=== PATIENT | male | born 1955 | race Caucasian/White ===

== ENCOUNTER 2017-05-31 11:55 | Inpatient (IN) ==
[2017-05-31 15:23] LABS: Basophils % 0.8 %; Eosinophils # 0.1 K/mcL (0.0-0.6); Hematocrit 37.1 % (37.5-50.1); Immature Granulocytes % 0.2 % (0-4); Lymphocytes # 1.5 K/mcL (0.6-4.6); Lymphocytes % 30.7 %; Mean Corpuscular HGB Conc 32.3 g/dL (31.6-35.5); Mean Corpuscular Volume 98.9 fL (83.0-100.0); Mean Platelet Volume 9.5 fL (9.4-12.4); Monocytes # 0.2 K/mcL (0.0-1.3); Monocytes % 4.1 %; Neutrophils # 3.1 K/mcL (1.6-8.9); Platelet Count 193 K/mcL (140-400); Red Blood Count 3.75 M/mcL (4.19-5.50); Red Cell Distribution Width 15.7 % (11.5-14.5); Segmented Neutrophils % 63.2 %
[2017-05-31 15:39] LABS: Calcium 9.3 mg/dL (8.6-10.8); Potassium 4.2 mEq/L (3.5-4.5)
[2017-05-31] MEDS ORDERED: Vancomycin 1,500 MG in D5% in Water 250 ML IVPB ONE (15:41)
[2017-05-31] MEDS ORDERED: 0.9 % Sodium Chloride 1,000 ML IVC ONE ×2 (15:50→16:45)
--- NOTE | 2017-05-31 16:40 | Emergency Department Note ---
START Narrative - START START: 61-year-old male presents emergency room with complaint of left hand swelling and irritation. He was seen in outpatient orthopedic physician's office. They had imaging and there is concern for osteomyelitis. Patient has redness and swelling over the proximal aspect of the first joint of the index finger left hand. He also swelling in his left lower extremity. Has a history of congestive heart failure and cardiac disease along with poorly controlled diabetes. Recent and physical exam is resting in the bed in no distress he is alert oriented speaking in full sentences. Answers questions appropriately. Lungs are clear heart is regular. He has had bilateral pitting edema in the extremities but no visible signs of cellulitis in the lower extremities at this time. He does have redness today Mtp joint of the big toe of the left lower cavity as well. Uric acid CBC chemistry troponin BNP chest x-ray EKG as well as CT imaging of the left upper extremity will be completed. Patient will be given first doses of antibiotics including vancomycin and Rocephin here and admission process will be completed for osteomyelitis. Patient is otherwise comfortable resting in bed at this time disposition pending this workup and treatment course. See detailed documentation of the resident physicians physical exam, medical intervention, medical decision-making and disposition. Patient admitted to hospice at this time with antibiotic regimen started. Consult placed to the request. See detailed documentation of this consultation and there is a physician's note. Patient is otherwise stable with osteomyelitis and superficial cellulitis. DVT study was negative.
--- NOTE | 2017-05-31 17:24 | Emergency Department Note ---
Disposition Clinical Impression: Osteomyelitis Qualifiers: Osteomyelitis type: unspecified type Osteomyelitis location: hand Laterality: left Qualified Code(s): M86.9 - Osteomyelitis, unspecified Cellulitis Qualifiers: Site of cellulitis: extremity Site of cellulitis of extremity: upper extremity Laterality: left Qualified Code(s): L03.114 - Cellulitis of left upper limb Disposition: Admitted As Inpatient Condition: Fair Time of Disposition: 17:55 Skin/Abscess/FB HPI Chief complaint: ED Skin/Abscess/Foreign Body Stated complaint: left hand cellulitis Time Seen by Provider: 05/31/17 15:09 Source: patient, family Mode of arrival: wheelchair Limitations: no limitations Nursing Notes Reviewed: Yes Vital Signs Reviewed: Yes HPI Narrative: 61-year-old male diabetic reporters to ED at insistence of orthopedic hand surgeon for developing left-hand cellulitis. Patient tells me left hand has been read and progressively edematous over the port over the course of about one week. Has been seen multiple times and given PO as well as IM antibiotics. Edematous, erythematous region spreading beyond previously drawn borders despite these treatments. Was seen by orthopedic hand specialist today, and an x-ray of the hand and demonstrates features consistent with osteomyelitis per radiologist read. Patient has had chills, but denies any overt fevers, diaphoresis, vision change , syncope, presyncope, palpitations, shortness of air, nausea, vomiting, dysuria. present comments on wound to grade 12 the right foot that is presently being followed by wound care. She also mentions a patient has some acute edema up to the knee of his left lower extremity. No known active cancer, no limb paralysis, no increased sedimentation, no pain in left lower exterminate, no prior DVT. Well's DVT = 3. Home Medications Medication Instructions Recorded Confirmed Atorvastatin Calcium [Lipitor] 80 mg PO HS #0 11/20/15 05/31/17 Divalproex (24 HR) [Depakote ER 500 mg PO DAILY 11/20/15 05/31/17 (24 HR)] Gemfibrozil [Lopid] 600 mg PO BIDWM 11/20/15 05/31/17 Glimepiride [Amaryl] 4 mg PO BID #0 11/20/15 05/31/17 Methocarbamol [Robaxin] 500 mg PO Q6HR PRN 11/20/15 05/31/17 Nitroglycerin [Nitrostat] 0.4 mg SL Q5M PRN #0 11/20/15 05/31/17 Omeprazole [PriLOSEC] 20 mg PO DAILY 11/20/15 05/31/17 SitaGLIPtin [Januvia] 100 mg PO DAILY 11/20/15 05/31/17 hydrALAZINE [HydrALAZINE] 37.5 mg PO TID 11/20/15 05/31/17 Albuterol Sulfate [Ventolin Hfa] 2 puff IH Q4H PRN 05/31/17 05/31/17 Aspirin 325 mg PO DAILY 05/31/17 05/31/17 Clopidogrel [Plavix] 75 mg PO DAILY 05/31/17 05/31/17 Doxycycline Monohydrate [Mondoxyne 100 mg PO BID 05/31/17 05/31/17 Nl] Furosemide [Lasix] 80 mg PO BID 05/31/17 05/31/17 HYDROcodone/Acet 5/325 mg [Trosper 1 tab PO BID PRN 05/31/17 05/31/17 5-325 mg] Insulin NPH Human Isophane 10 unit SQ QPM 05/31/17 05/31/17 [Novolin N] Insulin NPH Human Isophane 20 unit SQ QAM 05/31/17 05/31/17 [Novolin N] Insulin Regular, Human [Novolin R] 6 unit SQ BID 05/31/17 05/31/17 Isosorbide MONOnitrate (24 HR) 60 mg PO DAILY 05/31/17 05/31/17 [Imdur] Morphine Sulfate [Arymo ER] 15 mg PO Q12H PRN 05/31/17 05/31/17 Walsh-3/Dha/Epa/Fish Oil [Fish Oil 1,000 mg PO BID 05/31/17 05/31/17 1,000 mg Softgel] Potassium Chloride [K-Tab ER] 20 meq PO BID 05/31/17 05/31/17 metOLazone [Zaroxolyn] 2.5 mg PO FR 05/31/17 05/31/17 Allergies Allergy/AdvReac Type Severity Reaction Status Date / Time butorphanol [From Stadol] Allergy Unconscious Verified 05/31/17 11:56 fenofibrate [From Tricor] Allergy rhabdomylos Verified 05/31/17 11:56 is All systems ED: reviewed and negative except as stated. Review of Systems: As Per HPI Past Medical History - Past Medical History Attestation: Yes The following information was validated with the patient. Medical history: Reports: CHF, coronary artery disease, CVA, diabetes, hyperlipidemia, hypertension, myocardial infarction, other Surgical history: Reports: angioplasty/stent (Multiple times last time performed May 2015), cataract (Bilateral), cholecystectomy, herniorrhaphy ( Left inguinal), knee replacement (Left), orthopedic, other (Spinal surgery the patient did not tell me but the report from other hospitals as it was for some type of tumor), pacemaker/AICD Psychiatric history: Reports: no psych history - Social History Smoking Status: Former smoker Smokeless Tobacco Status: No Alcohol use: Reports: none Drug use: Reports: none Physical Exam Left hand: edematous erythematous region appreciated on dorsum of hand, then border is seen, but affected area extends beyond marker line. palpation, no fluctuating regions felt within hand. sensation, circulation, motor function intact to left hand. Right foot: great toe initially wrapped with some evidence of dry purulent discharge, small wound evident on tip of great toe without any acute drainage, some necrotic component to this lesion, Refill normal, sensation intact, overall toe is not overly erythematous or edematous. Leg: bilateral pitting edema, edema significantly worse on left compared right, left leg is generally erythematous, pulses intact bilaterally, no abrasions, no left leg lymphangitic streaking, no fluctuant component, not calorous. - General Limitations: no limitations General appearance: alert, in no apparent distress - Head Head exam: normocephalic - Eye Eye exam: Present: PERRL, EOMI. Absent: scleral icterus, conjunctival injection - ENT ENT exam: mucous membranes moist - Neck Neck exam: Absent: tenderness - Respiratory Respiratory exam: Present: normal lung sounds bilaterally. Absent: accessory muscle use - Cardiovascular Cardiovascular exam: Present: regular rate, normal rhythm, normal heart sounds. Absent: systolic murmur, diastolic murmur, +S3, +S4 - Abdominal Exam Abdominal exam: Present: soft, Non-Tender - Expanded Lower Extremity Exam Neurovascular/Tendon exam: Present: normal capillary refill. Absent: pulse deficit, motor deficit, sensory deficit, extremity cold to touch, pallor - Neurological Exam Neurological exam: Present: alert, oriented X3 - Psychiatric Psychiatric exam: Present: normal affect - Skin Skin exam: Present: other (Generally normal except as stated above in the extremities mentioned. No overall pallor, diaphoresis, or cyanosis.) Course Course Narrative: Patients referred to ED by ortho bone and joint explicitly for admission for outpatient therapy of cellulitis/osteomyelitis of left-hand. Patient given IV antibiotics Monday. Due to the nature of swelling of left extremity, did ultrasound venous Doppler of the extremity which did not elucidate any DVT. Labs revealed elevated lactate as well as acute renal insufficiency that, based on the UN: creatinine ratio, is likely the renal or volume related; IV normal saline bolus. Spoke with hospitalist at 1730 who accepts patient for continued IV antibiotic therapy as well as for consultation with [facility] for possible debridement and wound care consult for new right great toe wound. Wound culture was requested by hospitalist service, but on reevaluation of right great toe lesion, no purulent discharge is present for reasonable culture at this time. Vital Signs Temperature 97.6 F 05/31/17 11:56 Pulse Rate 84 05/31/17 11:56 Respiratory Rate 84 05/31/17 11:56 Blood Pressure 156/84 05/31/17 11:56 O2 Sat by Pulse Oximetry 99 05/31/17 11:56 Temperature 97.6 F 05/31/17 11:56 Pulse Rate 82 05/31/17 17:20 Respiratory Rate 18 05/31/17 17:20 Blood Pressure 150/80 05/31/17 17:20 O2 Sat by Pulse Oximetry 95 05/31/17 17:20 Oxygen Delivery Oxygen Delivery Room Air Skin/Abscess/Foreign Body - MDM Narrative Medical decision making narrative: Due to failed outpatient antibiotic therapy, patient will be admitted for continued IV antibiotic therapy as well as consultation with [facility] and wound care. - Lab Data Result diagrams: 05/31/17 15:03 05/31/17 15:03 Lab Results 05/31/17 05/31/17 05/31/17 Range/Units 15:03 15:03 15:03 WBC 4.9 (4.3-11.1) K/mcL RBC 3.75 L (4.19-5.50) M/mcL Hgb 12.0 L D (12.9-16.9) g/dL Hct 37.1 L (37.5-50.1) % MCV 98.9 (83.0-100.0) fL MCH 32.0 (28.0-33.3) pg MCHC 32.3 (31.6-35.5) g/dL RDW 15.7 H (11.5-14.5) % Plt Count 193 (140-400) K/mcL MPV 9.5 (9.4-12.4) fL Immature Gran % 0.2 (0-4) % Seg Neutrophils % 63.2 % Lymphocytes % 30.7 % Monocytes % 4.1 % Eosinophils % 1.0 % Basophils % 0.8 % Neutrophils # 3.1 (1.6-8.9) K/mcL Lymphocytes # 1.5 (0.6-4.6) K/mcL Monocytes # 0.2 (0.0-1.3) K/mcL Eosinophils # 0.1 (0.0-0.6) K/mcL Basophils # 0.0 (0.0-0.2) K/mcL ESR (0-10) mm/hr Sodium 138 (136-145) mEq/L Potassium 4.2 (3.5-4.5) mEq/L Chloride 102 (98-109) mEq/L Carbon Dioxide 20 (19-29) mEq/L BUN 33 H (8-26) mg/dL Creatinine 1.93 H (0.72-1.25) mg/dL Est GFR ( Amer) 43 L (> 60) Est GFR (Non-Af Amer) 36 L (> 60) BUN/Creatinine Ratio 17 (6-26) Glucose 219 H (70-99) mg/dL Calculated Osmolality 300 (280-300) Lactic Acid 3.4 H (0.5-2.2) mmol/L Uric Acid (3.5-7.2) mg/dL Calcium 9.3 (8.6-10.8) mg/dL Troponin I (0-0.03) ng/mL C-Reactive Protein (Less than 5) mg/L B-Natriuretic Peptide (0-100) pg/mL 05/31/17 05/31/17 05/31/17 Range/Units 16:09 16:09 16:09 WBC (4.3-11.1) K/mcL RBC (4.19-5.50) M/mcL Hgb (12.9-16.9) g/dL Hct (37.5-50.1) % MCV (83.0-100.0) fL MCH (28.0-33.3) pg MCHC (31.6-35.5) g/dL RDW (11.5-14.5) % Plt Count (140-400) K/mcL MPV (9.4-12.4) fL Immature Gran % (0-4) % Seg Neutrophils % % Lymphocytes % % Monocytes % % Eosinophils % % Basophils % % Neutrophils # (1.6-8.9) K/mcL Lymphocytes # (0.6-4.6) K/mcL Monocytes # (0.0-1.3) K/mcL Eosinophils # (0.0-0.6) K/mcL Basophils # (0.0-0.2) K/mcL ESR 70 H (0-10) mm/hr Sodium (136-145) mEq/L Potassium (3.5-4.5) mEq/L Chloride (98-109) mEq/L Carbon Dioxide (19-29) mEq/L BUN (8-26) mg/dL Creatinine (0.72-1.25) mg/dL Est GFR ( Amer) (> 60) Est GFR (Non-Af Amer) (> 60) BUN/Creatinine Ratio (6-26) Glucose (70-99) mg/dL Calculated Osmolality (280-300) Lactic Acid (0.5-2.2) mmol/L Uric Acid 12.0 H (3.5-7.2) mg/dL Calcium (8.6-10.8) mg/dL Troponin I 0.03 (0-0.03) ng/mL C-Reactive Protein 16 H (Less than 5) mg/L B-Natriuretic Peptide (0-100) pg/mL 05/31/17 Range/Units 16:09 WBC (4.3-11.1) K/mcL RBC (4.19-5.50) M/mcL Hgb (12.9-16.9) g/dL Hct (37.5-50.1) % MCV (83.0-100.0) fL MCH (28.0-33.3) pg MCHC (31.6-35.5) g/dL RDW (11.5-14.5) % Plt Count (140-400) K/mcL MPV (9.4-12.4) fL Immature Gran % (0-4) % Seg Neutrophils % % Lymphocytes % % Monocytes % % Eosinophils % % Basophils % % Neutrophils # (1.6-8.9) K/mcL Lymphocytes # (0.6-4.6) K/mcL Monocytes # (0.0-1.3) K/mcL Eosinophils # (0.0-0.6) K/mcL Basophils # (0.0-0.2) K/mcL ESR (0-10) mm/hr Sodium (136-145) mEq/L Potassium (3.5-4.5) mEq/L Chloride (98-109) mEq/L Carbon Dioxide (19-29) mEq/L BUN (8-26) mg/dL Creatinine (0.72-1.25) mg/dL Est GFR ( Amer) (> 60) Est GFR (Non-Af Amer) (> 60) BUN/Creatinine Ratio (6-26) Glucose (70-99) mg/dL Calculated Osmolality (280-300) Lactic Acid (0.5-2.2) mmol/L Uric Acid (3.5-7.2) mg/dL Calcium (8.6-10.8) mg/dL Troponin I (0-0.03) ng/mL C-Reactive Protein (Less than 5) mg/L B-Natriuretic Peptide 188 H (0-100) pg/mL Attestation Statement - Attestation Attestation: I, Roberto Kearns DO, examined this patient [id number] and my medical decision-making was reviewed with Luis Felipe De Souza PGY-1, Resident Physician. I agree with the documented findings, disposition and treatment plan as described except to the extent set forth below. Please see my progress notes for details.
[2017-05-31] MEDS ORDERED: Naloxone 0.4 MG/ML INJ IVP PRN (20:20)
[2017-05-31] MEDS ORDERED: Acetaminophen 325 MG TABLET PO PRN (20:28)
[2017-05-31] MEDS ORDERED: Nitroglycerin 0.4 MG TAB.SUBL SL PRN (20:31)
[2017-05-31] MEDS ORDERED: D5% in Water 1,000 ML IVC PRN (20:34)
[2017-05-31] MEDS ORDERED: Dextrose Gel 15 GM PO PRN ×2 (20:34)
[2017-05-31] MEDS ORDERED: *HR* Dextrose 50 % in Water (Syg) 50 ML SYRINGE IVP PRN (20:34)
--- NOTE | 2017-05-31 20:39 | Internal Med History&Physical ---
<Hien Whitten - Last Filed: 05/31/17 23:25> Date of Encounter: 05/31/17 Time of Encounter: 20:39 Assessment and Plan (1) Cellulitis of hand, left Current visit: Yes Status: Acute Patient has been experiencing redness and swelling to left hand for approximately one week. Failed outpatient treatment and presented to orthopedic surgeon today who advised patient that the ER after x-ray of hand revealed osteomyelitis. Blood cultures have been obtained we will continue with IV vancomycin and will add Unasyn 2 keep left extremity elevated 3 pulse checks to left extremity (2) Osteomyelitis Current visit: Yes Status: Acute 1 x-ray indicative of osteomyelitis to left hand. Cultures have been obtained. We will continue with faint and Unasyn. 2 consulted orthopedics per ER physician Qualifiers: Osteomyelitis type: unspecified type Osteomyelitis location: hand Laterality: left Qualified Code(s): M86.9 - Osteomyelitis, unspecified (3) MARLENE (acute kidney injury) Current visit: No Status: Acute Creatinine is 1.93 which is elevated from previous which appears to be around 1.29. Patient is on 80 of Lasix twice a day as well as metolazone. We will hold these for now. He just received 2 L of fluid in the ER recheck creatinine in a.m. 2 we will monitor intake and output daily weights 3 avoid nephrotoxins 4 renal dose antibiotics 5 monitor electrolytes and replace as needed (4) Diabetes mellitus Current visit: No Status: Chronic 1 we will hold metformin Accu-Cheks before meals and at bedtime with sliding scale insulin 2 diabetic diet Qualifiers: Diabetes mellitus type: type 2 Diabetes mellitus complication status: with unspecified complications Diabetes mellitus superintendent marine oil terminal insulin use: with usp use Qualified Code(s): E11.8 - Type 2 diabetes mellitus with unspecified complications; Z79.4 - keno terminal operator (current) use of insulin; Z79.4 - MCC ( current) use of insulin; Z79.4 - keno terminal operator (current) use of insulin; Z79.4 - MCC (current) use of insulin (5) History of coronary artery disease Current visit: No Status: Acute History of coronary disease with stent placement. We will continue with aspirin and Plavix as well as statin 2 nitrates as needed for chest pain (6) DVT prophylaxis Current visit: No Status: Acute Heparin subcutaneous (7) Hypertension Current visit: No Status: Chronic 1 continue with hydralazine and hold Lasix for now due to MARLENE Low-sodium diet Qualifiers: Hypertension type: essential hypertension Qualified Code(s): I10 - Essential (primary) hypertension Internal Medicine - H&P: HPI Chief complaint: Failed out patient ATB [place] Admitted From: Emergency Dept Plans for Post Hospital Care: Home History of present illness: Mr. Willis is a 61 year old male with past medical history of diabetes hypertension CAD with stent placement pacemaker CK D CVA. Has been experiencing swelling and erythema to left hand for approximate one-week. He was seen as an outpatient and [facility] was given antibiotics both oral and IM with no improvement. Edema and the area region spreading beyond previously drawn borders despite antibiotic treatment. Was seen by orthopedic surgeon today. Per radiology read patient has features consistent with osteomyelitis. He was sent to the ER from orthopedic office. He denies any fevers chills nausea vomiting shortness of breath chest pain. He does have some lower extremity swelling to his left leg that was dopplered in the ER and was negative for DVT. Blood cultures were obtained patient was given IV vancomycin as well as Rocephin. He does not appear to be septic and has been admitted for further workup and evaluation. Past Med Surg Social Fam HX - Past Medical History Medical history: asthma, CHF, COPD, coronary artery disease, CVA, diabetes, hyperlipidemia, hypertension, myocardial infarction, other Psychiatric history: no psych history - Past Surgical History Surgical History: angioplasty/stent, cataract, cholecystectomy, herniorrhaphy, knee replacement, orthopedic, other, pacemaker/AICD - Social History Smoking Status: Former smoker Smokeless Tobacco Status: No Alcohol use: none Drug use: none - Family History Father Living Status: Cause of : Cancer Hx Family Cancer: Yes (Lung cancer) Hx Family Endocrine Disorder: Yes (diabetes) Mother Living Status: Still Living Internal Medicine - H&P: Meds Atorvastatin Calcium [Lipitor] 80 mg PO HS #0 11/20/15 [History] Divalproex (24 HR) [Depakote ER (24 HR)] 500 mg PO DAILY 11/20/15 [History] Gemfibrozil [Lopid] 600 mg PO BIDWM 11/20/15 [History] Glimepiride [Amaryl] 4 mg PO BID #0 11/20/15 [History] Methocarbamol [Robaxin] 500 mg PO Q6HR PRN 11/20/15 [History] Nitroglycerin [Nitrostat] 0.4 mg SL Q5M PRN #0 11/20/15 [History] Omeprazole [PriLOSEC] 20 mg PO DAILY 11/20/15 [History] SitaGLIPtin [Januvia] 100 mg PO DAILY 11/20/15 [History] hydrALAZINE [HydrALAZINE] 37.5 mg PO TID 11/20/15 [History] Albuterol Sulfate [Ventolin Hfa] 2 puff IH Q4H PRN 05/31/17 [History] Aspirin 325 mg PO DAILY 05/31/17 [History] Clopidogrel [Plavix] 75 mg PO DAILY 05/31/17 [History] Doxycycline Monohydrate [Mondoxyne Nl] 100 mg PO BID 05/31/17 [History] Furosemide [Lasix] 80 mg PO BID 05/31/17 [History] HYDROcodone/Acet 5/325 mg [Oakley 5-325 mg] 1 tab PO BID PRN 05/31/17 [History] Insulin NPH Human Isophane [Novolin N] 10 unit SQ QPM 05/31/17 [History] Insulin NPH Human Isophane [Novolin N] 20 unit SQ QAM 05/31/17 [History] Insulin Regular, Human [Novolin R] 6 unit SQ BID 05/31/17 [History] Isosorbide MONOnitrate (24 HR) [Imdur] 60 mg PO DAILY 05/31/17 [History] Morphine Sulfate [Arymo ER] 15 mg PO Q12H PRN 05/31/17 [History] Hancock-3/Dha/Epa/Fish Oil [Fish Oil 1,000 mg Softgel] 1,000 mg PO BID 05/31/17 [ History] Potassium Chloride [K-Tab ER] 20 meq PO BID 05/31/17 [History] metOLazone [Zaroxolyn] 2.5 mg PO FR 05/31/17 [History] 3 Allergy/AdvReac Type Severity Reaction Status Date / Time butorphanol [From Stadol] Allergy Unconscious Verified 05/31/17 11:56 fenofibrate [From Tricor] Allergy rhabdomylos Verified 05/31/17 11:56 is All Systems PM: A 10-system review of systems was performed and is negative for pertinent findings except as documented above in the HPI. - Constitutional Constitutional: no chills, no fever(s), no night sweats - EENT Eyes: no change in vision, no discharge, no pain, no photophobia Ears: no ear discharge, no ear pain, no tinnitus Nose, mouth and throat: no dysphagia, no nasal discharge, no neck pain, no sore throat - Cardiovascular Cardiovascular ROS IM: no chest pain, no diaphoresis, no dyspnea, no lightheadedness, no palpitations, no syncope - Respiratory Respiratory: no cough, no dyspnea, no wheezing, no excessive phlegm production - Gastrointestinal Gastrointestinal: no abdominal pain, no diarrhea, no hematemesis, no hematochezia, no melena, no nausea, no vomiting - Musculoskeletal Musculoskeletal ROS IM: joint swelling - Integumentary Integumentary IM: erythema - Neurological Neurological ROS: no confusion, no convulsions, no focal weakness, no numbness, no tingling, no tremor(s) - Hematologic/Lymphatic Hematologic/Lymphatic: no easy bruising - Constitutional Vitals: Temp Pulse Resp BP Pulse Ox 97.9 F 78 18 161/89 99 05/31/17 20:20 05/31/17 20:20 05/31/17 20:20 05/31/17 20:20 05/31/17 20:20 General appearance: Present: A&O X 3 - Head Head exam: Present: atraumatic, normocephalic - Eye Eye exam: Present: PERRL, conjuntiva pink, sclera anicteric Pupils: Present: PERRL - Neck Neck exam general surgery: Present: supple, trachea midline. Absent: lymphadenopathy - Respiratory Respiratory exam: Present: CTAB. Absent: accessory muscle use, rales, rhonchi, wheezes - Cardiovascular Cardiovascular exam: Present: RRR, +S1, +S2. Absent: diastolic murmur, gallop, rubs, systolic murmur - GI/Abdominal GI/Abdominal exam: Present: normal bowel sounds, soft, no peritoneal signs. Absent: distended, tenderness - Extremities Exam Extremities exam: Present: joint swelling, pedal edema, tenderness, warm, radial pulses palpable and symmetrical. Absent: calf tenderness, cyanotic - Expanded Upper Extremities Exam Hand wrist exam: Present: erythema, swelling, tenderness - Expanded Lower Extremities Exam Lower Leg exam: Present: swelling - Neurological Exam Neurological exam: Present: CN II-XII intact, oriented X3, no focal deficits. Absent: pronater drift, facial droop, speech deficit - Skin Skin exam: Present: dry, intact Internal Med - H&P Results - Labs CBC & Chem 7: 05/31/17 15:03 05/31/17 15:03 - Diagnostic Studies Other Images Additional comments: Foot X-Ray 05/31/17 15:40 IMPRESSION: No acute osseous abnormality. D/ / 05/31/2017 16:55:06 Carlito Faustin MD / earnold Interpreting Provider: Carlito Faustin MD Chest X-Ray 05/31/17 15:41 IMPRESSION: No acute process. D/ / Mendez Nguyen MD / Mendez Nguyen MD Interpreting Provider: Mendez Nguyen MD <Naseem Perdomo - Last Filed: 06/01/17 01:13> Date of Encounter: 05/31/17 Internal Medicine - H&P: HPI History of present illness: Mr. Willis is a 61 year old male All Systems PM: A 10-system review of systems was performed and is negative for pertinent findings except as documented above in the HPI. - Constitutional Vitals: Temp Pulse Resp BP Pulse Ox 98.8 F 84 17 157/84 99 05/31/17 23:05 05/31/17 23:05 05/31/17 23:05 05/31/17 23:05 05/31/17 23:05 Internal Med - H&P Results - Labs CBC & Chem 7: 05/31/17 15:03 05/31/17 15:03 - Attending Attestation I personally interviewed and examined this patient and my medical decision- making was reviewed with the Advanced Practice Nurse. I agree with the documented findings, disposition and treatment plan as described except to the extent set forth below. Naseem Perdomo MD, MPH Hospitalist
[2017-05-31] MEDS: Furosemide 40 MG TABLET PO SCH (22:34)
[2017-05-31] MEDS: *HR* Morphine 2 MG/ML SYRINGE IVP PRN (22:40)
[2017-05-31] MEDS: hydrALAZINE 25 MG TABLET PO SCH (22:40)
[2017-05-31] MEDS: Insulin DETEMIR 100 UNIT/ML X5UNITS SQ SCH (22:41)
[2017-05-31] MEDS: Insulin LISPRO 300 UNITS/3 ML VIAL SQ SCH (22:41)
--- NOTE | 2017-05-31 23:34 | Venous Imaging Report ---
LE Venous Duplex Patient Name:Rajesh Willis Order Number:[id number] Procedure Date:05/31/2017 Date:8Age:61 yrs Gender:Male Location:[facility] ED Room #: ED26 Tear Down Matcher:Olesya Prieto RDCS Referring MD:DO Radha Campos MD:Edmundo Perdue MD , FACS Primary Indications:Swelling Secondary Indications: Risk Factors Yes/No Anticoagulants Impressions: Left lower extremity: normal superficial and deep exam. Right lower extremity: normal contralateral exam. Recommendations: After imaging the patient returned to their room. Test completed on 05/31/2017 at 4:35:00 pm. Critical findings reported to Dr. Kearns-ED- in person at 4:37:00 pm on 05/31/2017 by Olesya Prieto RDCS. Findings Prior Study: No prior study available for comparison. Lower Extremity Venous Duplex Side Vein Compress Spontaneous Flow Augment Diameter (cm) Depth (cm) Left Distal Iliac Normal Yes Phasic Yes Left Common Femoral Normal Yes Phasic Yes Left Superficial Femoral Normal Yes Phasic Yes Left Popliteal Normal Yes Phasic Yes Left Posterior Tibial Normal Yes Phasic Yes Left Peroneal Normal Yes Phasic Yes Left Saphenofemoral Junction Normal Yes Phasic Yes Left Great Saphenous Normal Yes Phasic Yes Left Lesser Saphenous Normal Yes Phasic Yes Right Common Femoral Normal Yes Phasic Yes Updated by Edmundo Perdue MD, FACS on 05/31/2017 11:27:52 PM Edmundo Perdue MD electronically signed on 05/31/2017 11:28:28 PM with status of Final
[2017-05-31] MEDS ORDERED: 0.9 % Sodium Chloride 1,000 ML IVC SCH (23:45)
[2017-06-01] MEDS: Ampicillin/Sulbactam 3,000 MG in 0.9 % Sodium Chloride Mini Bag 100 ML IVPB SCH ×5 (00:12→22:20)
[2017-06-01] MEDS: *HR* Morphine 2 MG/ML SYRINGE IVP PRN ×5 (03:29→22:21)
[2017-06-01 04:39] LABS: Basophils % 0.4 %; Eosinophils % 1.1 %; Hematocrit 30.4 % (37.5-50.1); Immature Granulocytes % 0.2 % (0-4); Lymphocytes % 32.1 %; Mean Corpuscular HGB Conc 33.6 g/dL (31.6-35.5); Mean Corpuscular Hemoglobin 31.6 pg (28.0-33.3); Mean Corpuscular Volume 94.1 fL (83.0-100.0); Mean Platelet Volume 9.4 fL (9.4-12.4); Monocytes % 6.2 %; Platelet Count 151 K/mcL (140-400); Red Blood Count 3.23 M/mcL (4.19-5.50); Red Cell Distribution Width 14.8 % (11.5-14.5)
[2017-06-01 04:40] LABS: Eosinophils # 0.1 K/mcL (0.0-0.6); Hemoglobin 10.2 g/dL (12.9-16.9); Lymphocytes # 1.8 K/mcL (0.6-4.6); Monocytes # 0.3 K/mcL (0.0-1.3); Neutrophils # 3.3 K/mcL (1.6-8.9)
[2017-06-01 04:49] LABS: BUN/Creatinine Ratio 19 (6-26); Blood Urea Nitrogen 26 mg/dL (8-26); Calcium 8.1 mg/dL (8.6-10.8); Carbon Dioxide 22 mEq/L (19-29); Chloride 108 mEq/L (98-109); Glucose 177 mg/dL (70-99); Magnesium 1.4 mg/dL (1.6-2.6); Osmolality,Calculated 297 (280-300); Potassium 3.7 mEq/L (3.5-4.5); Sodium 139 mEq/L (136-145); eGFR For African Americans > 60 (> 60); eGFR For Non-African Americans 54 (> 60)
[2017-06-01] MEDS: *HR* Heparin 5,000 UNIT/ML VIAL SQ SCH ×2 (06:14→18:17)
[2017-06-01] MEDS: Aspirin 325 MG TABLET PO SCH (08:26)
[2017-06-01] MEDS: Divalproex (24 HR) 500 MG TABLET PO SCH (08:26)
[2017-06-01] MEDS: Isosorbide MONOnitrate (24 HR) 60 MG TAB.ER.24H PO SCH (08:26)
[2017-06-01] MEDS: hydrALAZINE 25 MG TABLET PO SCH ×3 (08:27→20:29)
[2017-06-01] MEDS: Pantoprazole 40 MG VIAL IVP SCH (08:27)
[2017-06-01] MEDS: Insulin LISPRO 300 UNITS/3 ML VIAL SQ SCH ×4 (08:27→22:25)
[2017-06-01] MEDS ORDERED: Vancomycin 1,500 MG in D5% in Water 250 ML IVPB SCH (09:00)
[2017-06-01] MEDS: Silvasorb 44.4 ML TUBE TP SCH (16:26)
--- NOTE | 2017-06-01 17:08 | Orthopedic Consult Note ---
Date of Encounter: 06/01/17 Time of Encounter: 17:05 Assessment and Plan (1) Cellulitis of hand, left Current Visit: Yes Status: Acute I did discuss the diagnosis in detail with patient. He has cellulitis of the left hand with osteomyelitis of the index metacarpal head and proximal phalangeal base. My recommendation was for debridement and irrigation of the left hand with curettage of the osteomyelitis and for culture and biopsy. I anticipate long-term antibiotics, IV. I will consult infectious disease as topically. The risks discussed included but were not limited to stiffness, bleeding, infection, blood clots, damage to neurovascular structures, tendons, ligaments, and bone. Also discussed was the risk of continued symptoms and possible need for further procedures. I did discuss the anesthesia risks including stroke, heart attack, and . I did discuss the reasonable, for stable postoperative course with the patient. He did wish to proceed and consent was obtained. In order to help plan the amount of surgical bony debridement I will order an MRI of the left hand to evaluate further areas of osteomyelitis. History of Present Illness HPI: Mr. Willis is a 61 year old male right-hand dominant diabetic male who was admitted last night for cellulitis of his left hand. There is concern for osteomyelitis of the index metacarpal and proximal phalanx and hand surgeries consultation for the evaluation and management of this patient. He is currently admitted and on Unasyn. On my evaluation complains of isolated pain localized to left hand diffusely, worse along the dorsal and volar aspect of the index ray. This has improved since being on antibiotics overnight. He says symptoms began last Monday without known cause. 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 He is also being treated for a right great toe ulcer by the wound care team. He denies any numbness, tingling, or any other associated signs or symptoms. The pain is worse with use and better at rest. He denies any modifying factors otherwise. Past Med Surg Social Fam HX - Past Medical History Medical history: asthma, CHF, COPD, coronary artery disease, CVA, diabetes, hyperlipidemia, hypertension, myocardial infarction, other Psychiatric history: no psych history - Past Surgical History Surgical History: angioplasty/stent, cataract, cholecystectomy, herniorrhaphy, knee replacement, orthopedic, other, pacemaker/AICD - Social History Smoking Status: Former smoker Smokeless Tobacco Status: No Alcohol use: none Drug use: none - Family History Father Living Status: Cause of : Cancer Hx Family Cancer: Yes (Lung cancer) Hx Family Endocrine Disorder: Yes (diabetes) Mother Living Status: Still Living Medications and Allergies Atorvastatin Calcium [Lipitor] 80 mg PO HS #0 11/20/15 [History] Divalproex (24 HR) [Depakote ER (24 HR)] 500 mg PO DAILY 11/20/15 [History] Gemfibrozil [Lopid] 600 mg PO BIDWM 11/20/15 [History] Glimepiride [Amaryl] 4 mg PO BID #0 11/20/15 [History] Methocarbamol [Robaxin] 500 mg PO Q6HR PRN 11/20/15 [History] Nitroglycerin [Nitrostat] 0.4 mg SL Q5M PRN #0 11/20/15 [History] Omeprazole [PriLOSEC] 20 mg PO DAILY 11/20/15 [History] SitaGLIPtin [Januvia] 100 mg PO DAILY 11/20/15 [History] hydrALAZINE [HydrALAZINE] 37.5 mg PO TID 11/20/15 [History] Albuterol Sulfate [Ventolin Hfa] 2 puff IH Q4H PRN 05/31/17 [History] Aspirin 325 mg PO DAILY 05/31/17 [History] Clopidogrel [Plavix] 75 mg PO DAILY 05/31/17 [History] Doxycycline Monohydrate [Mondoxyne Nl] 100 mg PO BID 05/31/17 [History] Furosemide [Lasix] 80 mg PO BID 05/31/17 [History] HYDROcodone/Acet 5/325 mg [[place] 5-325 mg] 1 tab PO BID PRN 05/31/17 [History] Insulin NPH Human Isophane [Novolin N] 10 unit SQ QPM 05/31/17 [History] Insulin NPH Human Isophane [Novolin N] 20 unit SQ QAM 05/31/17 [History] Insulin Regular, Human [Novolin R] 6 unit SQ BID 05/31/17 [History] Isosorbide MONOnitrate (24 HR) [Imdur] 60 mg PO DAILY 05/31/17 [History] Morphine Sulfate [Arymo ER] 15 mg PO Q12H PRN 05/31/17 [History] [place]-3/Dha/Epa/Fish Oil [Fish Oil 1,000 mg Softgel] 1,000 mg PO BID 05/31/17 [ History] Potassium Chloride [K-Tab ER] 20 meq PO BID 05/31/17 [History] metOLazone [Zaroxolyn] 2.5 mg PO FR 05/31/17 [History] 3 Allergy/AdvReac Type Severity Reaction Status Date / Time butorphanol [From Stadol] Allergy Unconscious Verified 05/31/17 11:56 fenofibrate [From Tricor] Allergy rhabdomylos Verified 05/31/17 11:56 is All Systems Reviewed: Constitutional and musculoskeletal systems were reviewed and are negative unless otherwise stated in history of present illness. Physical Exam - Constitutional Vitals: Temp Pulse Resp BP Pulse Ox 98.0 F 83 18 150/80 99 06/01/17 15:14 06/01/17 15:14 06/01/17 15:14 06/01/17 15:14 06/01/17 15:14 CONSTITUTIONAL -Vitals reviewed -The patient is well developed, well nourished, well groomed PSYCHIATRIC -Fully alert and oriented -Pleasant mood LEFT UPPER EXTREMITY Inspection shows moderate swelling to the hand diffusely with mild erythema along the dorsal and volar aspects of the hand but mainly dorsal which has been demarcated with a marker. Tenderness to palpation mostly over the dorsal aspect of the index metacarpophalangeal joint with decreasing intensity as one gets further out. His missing the tips of the long and ring fingers from a prior injury though they have well healed. No pain with active or passive motion of the elbow or the wrist. Mild stiffness of the digits due to pain inhibition. The patient can actively flex and extend all digits, extend the thumb, cross the index and long fingers, make an okay sign, and oppose the thumb. The fingertips are all grossly sensate and well-perfused, and the radial artery pulse is 2+. Diagnostic Imaging: I did personally review and interpret x-rays of the left hand which show prior amputations to the long and ring fingers as well as what appears to be osteomyelitis along the ulnar aspect of the index metacarpal head and proximal phalangeal base. Results - Labs Result Diagrams: 06/01/17 04:11 06/01/17 04:11 Labs: Abnormal lab results RBC 3.23 M/mcL (4.19-5.50) L 06/01/17 04:11 Hgb 10.2 g/dL (12.9-16.9) L D 06/01/17 04:11 Hct 30.4 % (37.5-50.1) L 06/01/17 04:11 RDW 14.8 % (11.5-14.5) H 06/01/17 04:11 ESR 70 mm/hr (0-10) H 05/31/17 16:09 Creatinine 1.36 mg/dL (0.72-1.25) H 06/01/17 04:11 Est GFR (Non-Af Amer) 54 (> 60) L 06/01/17 04:11 Glucose 177 mg/dL (70-99) H 06/01/17 04:11 POC Glucose 141 (58-89) H 06/01/17 16:12 Lactic Acid 3.4 mmol/L (0.5-2.2) H 05/31/17 15:03 Uric Acid 12.0 mg/dL (3.5-7.2) H 05/31/17 16:09 Calcium 8.1 mg/dL (8.6-10.8) L 06/01/17 04:11 Magnesium 1.4 mg/dL (1.6-2.6) L 06/01/17 04:11 C-Reactive Protein 16 mg/L (Less than 5) H 05/31/17 16:09 B-Natriuretic Peptide 188 pg/mL (0-100) H 05/31/17 16:09 H & H 06/01/17 Range/Units 04:11 Hgb 10.2 L D (12.9-16.9) g/dL Hct 30.4 L (37.5-50.1) % All other labs normal. Consult Discharge Plan - Plan Referrals: Uvaldo Fernandez MD [Primary Care Provider] -
[2017-06-01] MEDS: Vancomycin 1,500 MG in D5% in Water 250 ML IVPB SCH (17:10)
--- NOTE | 2017-06-01 17:58 | Internal Med Progress Note ---
Date of Encounter: 06/01/17 Time of Encounter: 10:00 - Assessment and plan (1) Cellulitis of hand, left Current Visit: Yes Status: Acute Assessment and plan: -Orthopedics consulted with recommendations for incision and drainage -Will continue IV antibiotics with vancomycin and Unasyn; until culture results known from incision and drainage above. (2) MARLENE (acute kidney injury) Current Visit: No Status: Acute Assessment and plan: -Will continue to hold home dose of Lasix and metolazone. -Renal function improving -Continue to monitor (3) Diabetes mellitus Current Visit: No Status: Chronic Assessment and plan: -Glucose controlled; continue home insulin Qualifiers: Diabetes mellitus type: type 2 Diabetes mellitus complication status: with unspecified complications Diabetes mellitus senior living insulin use: with senior living use Qualified Code(s): E11.8 - Type 2 diabetes mellitus with unspecified complications; Z79.4 - watermelon inspector (current) use of insulin; Z79.4 - senior living ( current) use of insulin; Z79.4 - senior living (current) use of insulin; Z79.4 - watermelon inspector (current) use of insulin - Subjective Interval history: Patient with left hand discomfort this morning - Constitutional Vitals: Temp Pulse Resp BP Pulse Ox 98.0 F 83 18 150/80 99 06/01/17 15:14 06/01/17 15:14 06/01/17 15:14 06/01/17 15:14 06/01/17 15:14 General appearance: Present: A&O X 3 - Respiratory Respiratory exam: Present: CTAB. Absent: accessory muscle use, rales, rhonchi, wheezes - Cardiovascular Cardiovascular exam: Present: RRR, +S1, +S2. Absent: diastolic murmur, gallop, rubs, systolic murmur - Expanded Upper Extremities Exam Upper Arm exam: Present: swelling (Left hand edema with improved erythema) Internal Medicine: Result - Labs CBC & Chem 7: 06/01/17 04:11 06/01/17 04:11 Labs: Short CBC 06/01/17 Range/Units 04:11 WBC 5.5 (4.3-11.1) K/mcL Hgb 10.2 L D (12.9-16.9) g/dL Hct 30.4 L (37.5-50.1) % Plt Count 151 (140-400) K/mcL Neutrophils # 3.3 (1.6-8.9) K/mcL BMP 06/01/17 04:11 Sodium 139 Potassium 3.7 Chloride 108 Carbon Dioxide 22 BUN 26 Creatinine 1.36 H Glucose 177 H Calcium 8.1 L Consult Discharge Plan - Plan Referrals: Uvaldo Fernandez MD [Primary Care Provider] -
--- NOTE | 2017-06-01 20:15 | Electrocardiograph Report ---
[address] [place], [place] [address] Test Date: 2017-05-31 Pat Name: Rajesh Willis Department: 102 Room: [facility] Gender: M Manager Safe: : 1955 Requested By: Roberto Kearns Order Number: [id number] Reading MD: Ke Randall MD Measurements Intervals [place] Rate: 79 P: 18 NE: 210 QRS: -33 QRSD: 126 T: 107 QT: 376 QTc: 411 Interpretive Statements SINUS RHYTHM WITH FIRST DEGREE AV BLOCK MARKED LEFT AXIS DEVIATION Poor R wave progression POSSIBLE INFERIOR MYOCARDIAL INFARCTION BASELINE ARTIFACT Electronically Signed On 06-01-2017 20:13:10 EDT by Ke Randall MD
[2017-06-01] MEDS: Insulin DETEMIR 100 UNIT/ML X5UNITS SQ SCH (20:30)
[2017-06-02] MEDS: *HR* Morphine 2 MG/ML SYRINGE IVP PRN ×3 (03:35→23:11)
[2017-06-02] MEDS: Ampicillin/Sulbactam 3,000 MG in 0.9 % Sodium Chloride Mini Bag 100 ML IVPB SCH ×4 (07:00→23:00)
[2017-06-02] MEDS: *HR* Heparin 5,000 UNIT/ML VIAL SQ SCH ×2 (07:00→16:35)
--- NOTE | 2017-06-02 07:26 | Orthopedics Progress Note ---
Date of Encounter: 06/02/17 Time of Encounter: 07:24 - Assessment and Plan (1) Cellulitis of hand, left Current Visit: Yes Status: Acute I did discuss the diagnosis in detail with patient. He has cellulitis of the left hand with osteomyelitis of the index metacarpal head and proximal phalangeal base. My recommendation was for debridement and irrigation of the left hand with curettage of the osteomyelitis and for culture and biopsy. I anticipate long-term antibiotics, IV. I will consult infectious disease as topically. The risks discussed included but were not limited to stiffness, bleeding, infection, blood clots, damage to neurovascular structures, tendons, ligaments, and bone. Also discussed was the risk of continued symptoms and possible need for further procedures. I did discuss the anesthesia risks including stroke, heart attack, and . I did discuss the reasonable, for stable postoperative course with the patient. He did wish to proceed and consent was obtained. In order to help plan the amount of surgical bony debridement I will order an MRI of the left hand to evaluate further areas of osteomyelitis. Subjective Interval history: S: Resting in bed comfortably Left hand pain unchanged from yesterday, localized mainly over the index metacarpal ray Patient was unable to get MRI due to the implanted metal O: Afebrile and vital signs are stable Improved erythema to the left hand Tenderness over the index metacarpal head and MCP joint The patient can actively flex and extend all digits, extend the thumb, cross the index and long fingers, make an okay sign, and oppose the thumb. The fingertips are all grossly sensate and well-perfused, and the radial artery pulse is 2+. A: Left index metacarpal head and proximal phalangeal osteomyelitis P: We will plan on bony curettage and debridement later today Nothing by mouth We will consult infectious disease postoperatively We will likely need PICC and long-term IV antibiotics. Objective Vital signs: Vital Signs Temp Pulse Resp BP Pulse Ox 06/02/17 05:31 97.7 F 93 16 160/79 98 06/02/17 01:10 98.3 F 96 17 146/77 97 06/01/17 21:31 98.2 F 79 16 150/76 98 06/01/17 15:14 98.0 F 83 18 150/80 99 06/01/17 11:13 98.0 F 76 18 151/79 98 Intake and Output 06/01/17 06/01/17 06/02/17 15:59 23:59 07:59 Intake Total 580 / 580 300 / 300 Output Total 300 / 300 650 / 650 325 / 325 Balance 280 / 280 -350 / -350 -325 / -325 Intake: IV Fluids 100 / 100 300 / 300 Unasyn 3,000 MG In 0.9 % Sodium 100 / 100 300 / 300 Chloride (Mini-Bag +) 100 ML @ 200 mls/hr IVPB Q6HR [facility] Rx#: [id number] Oral 480 / 480 Output: Urine 300 / 300 650 / 650 325 / 325 Other: Meal Lunch Percent of Meal Consumed 100% Weight 98.3 kg Blood Glucose* 170 185 124 Patient Weight 06/02/17 23:59 Weight 98.3 kg - Labs CBC & BMP: 06/01/17 04:11 06/01/17 04:11 Labs: Abnormal lab results RBC 3.23 M/mcL (4.19-5.50) L 06/01/17 04:11 Hgb 10.2 g/dL (12.9-16.9) L D 06/01/17 04:11 Hct 30.4 % (37.5-50.1) L 06/01/17 04:11 RDW 14.8 % (11.5-14.5) H 06/01/17 04:11 ESR 70 mm/hr (0-10) H 05/31/17 16:09 Creatinine 1.36 mg/dL (0.72-1.25) H 06/01/17 04:11 Est GFR (Non-Af Amer) 54 (> 60) L 06/01/17 04:11 Glucose 177 mg/dL (70-99) H 06/01/17 04:11 POC Glucose 124 (58-89) H 06/02/17 05:34 Lactic Acid 3.4 mmol/L (0.5-2.2) H 05/31/17 15:03 Uric Acid 12.0 mg/dL (3.5-7.2) H 05/31/17 16:09 Calcium 8.1 mg/dL (8.6-10.8) L 06/01/17 04:11 Magnesium 1.4 mg/dL (1.6-2.6) L 06/01/17 04:11 C-Reactive Protein 16 mg/L (Less than 5) H 05/31/17 16:09 B-Natriuretic Peptide 188 pg/mL (0-100) H 05/31/17 16:09 - VTE Documentation of Mechanical Device: Venous foot pump, device Consult Discharge Plan - Plan Referrals: Uvaldo Fernandez MD [Primary Care Provider] -
[2017-06-02 08:06] LABS: BUN/Creatinine Ratio 18 (6-26); Blood Urea Nitrogen 22 mg/dL (8-26); Calcium 8.2 mg/dL (8.6-10.8); Carbon Dioxide 24 mEq/L (19-29); Chloride 109 mEq/L (98-109); Glucose 123 mg/dL (70-99); Osmolality,Calculated 297 (280-300); Sodium 141 mEq/L (136-145); eGFR For African Americans > 60 (> 60); eGFR For Non-African Americans > 60 (> 60)
[2017-06-02 08:09] LABS: Basophils % 0.4 %; Eosinophils # 0.1 K/mcL (0.0-0.6); Eosinophils % 1.7 %; Hematocrit 29.6 % (37.5-50.1); Hemoglobin 9.9 g/dL (12.9-16.9); Immature Granulocytes % 0.2 % (0-4); Lymphocytes # 1.2 K/mcL (0.6-4.6); Lymphocytes % 25.7 %; Mean Corpuscular HGB Conc 33.4 g/dL (31.6-35.5); Mean Corpuscular Hemoglobin 31.8 pg (28.0-33.3); Mean Corpuscular Volume 95.2 fL (83.0-100.0); Mean Platelet Volume 9.3 fL (9.4-12.4); Monocytes # 0.3 K/mcL (0.0-1.3); Monocytes % 5.9 %; Neutrophils # 3.1 K/mcL (1.6-8.9); Platelet Count 140 K/mcL (140-400); Red Blood Count 3.11 M/mcL (4.19-5.50); Segmented Neutrophils % 66.1 %
[2017-06-02] MEDS: Pantoprazole 40 MG VIAL IVP SCH (08:31)
[2017-06-02] MEDS: hydrALAZINE 25 MG TABLET PO SCH ×3 (08:31→22:58)
[2017-06-02] MEDS: Isosorbide MONOnitrate (24 HR) 60 MG TAB.ER.24H PO SCH (08:31)
[2017-06-02] MEDS: Divalproex (24 HR) 500 MG TABLET PO SCH (08:32)
[2017-06-02] MEDS: Silvasorb 44.4 ML TUBE TP SCH (08:43)
[2017-06-02] MEDS: Insulin LISPRO 300 UNITS/3 ML VIAL SQ SCH ×4 (08:45→23:11)
[2017-06-02] MEDS: Aspirin 325 MG TABLET PO SCH (08:46)
--- NOTE | 2017-06-02 10:22 | Anesthesia Evaluation PreOp ---
Date of Encounter: 06/02/17 Time of Encounter: 10:20 - Past History Planned Operation: I&D left hand Cardiac History: NE, CHF, HTN, Hyperlipidemia, Cardiac Stent, Pacemaker/ICD Pulmonary History: Former smoker, Asthma, COPD CERAMIC TILE INSTALLER History: CVA Anesthesia History: No Prior Anesthetic Complications, Past Anesthesia (bijan, hernia, TKA) Alcohol Use: none Drug use: none Medications and Allergies Atorvastatin Calcium [Lipitor] 80 mg PO HS #0 11/20/15 [History] Divalproex (24 HR) [Depakote ER (24 HR)] 500 mg PO DAILY 11/20/15 [History] Gemfibrozil [Lopid] 600 mg PO BIDWM 11/20/15 [History] Glimepiride [Amaryl] 4 mg PO BID #0 11/20/15 [History] Methocarbamol [Robaxin] 500 mg PO Q6HR PRN 11/20/15 [History] Nitroglycerin [Nitrostat] 0.4 mg SL Q5M PRN #0 11/20/15 [History] Omeprazole [PriLOSEC] 20 mg PO DAILY 11/20/15 [History] SitaGLIPtin [Januvia] 100 mg PO DAILY 11/20/15 [History] hydrALAZINE [HydrALAZINE] 37.5 mg PO TID 11/20/15 [History] Albuterol Sulfate [Ventolin Hfa] 2 puff IH Q4H PRN 05/31/17 [History] Aspirin 325 mg PO DAILY 05/31/17 [History] Clopidogrel [Plavix] 75 mg PO DAILY 05/31/17 [History] Doxycycline Monohydrate [Mondoxyne Nl] 100 mg PO BID 05/31/17 [History] Furosemide [Lasix] 80 mg PO BID 05/31/17 [History] HYDROcodone/Acet 5/325 mg [[place] 5-325 mg] 1 tab PO BID PRN 05/31/17 [History] Insulin NPH Human Isophane [Novolin N] 10 unit SQ QPM 05/31/17 [History] Insulin NPH Human Isophane [Novolin N] 20 unit SQ QAM 05/31/17 [History] Insulin Regular, Human [Novolin R] 6 unit SQ BID 05/31/17 [History] Isosorbide MONOnitrate (24 HR) [Imdur] 60 mg PO DAILY 05/31/17 [History] Morphine Sulfate [Arymo ER] 15 mg PO Q12H PRN 05/31/17 [History] [place]-3/Dha/Epa/Fish Oil [Fish Oil 1,000 mg Softgel] 1,000 mg PO BID 05/31/17 [ History] Potassium Chloride [K-Tab ER] 20 meq PO BID 05/31/17 [History] metOLazone [Zaroxolyn] 2.5 mg PO FR 05/31/17 [History] 3 Allergy/AdvReac Type Severity Reaction Status Date / Time butorphanol [From Stadol] Allergy Unconscious Verified 05/31/17 11:56 fenofibrate [From Tricor] Allergy rhabdomylos Verified 05/31/17 11:56 is - Meds/Allergy Pre-op Review Medications Reviewed: Yes Allergies Reviewed: Yes Beta Blockers on Current Med List: No Anesthesia Results - Labs 06/02/17 07:43 06/02/17 07:43 - Imaging EKG: report reviewed (SINUS RHYTHM WITH FIRST DEGREE AV BLOCK MARKED LEFT AXIS DEVIATION Poor R wave progression POSSIBLE INFERIOR MYOCARDIAL INFARCTION BASELINE ARTIFACT) Anesthesia Exam Selected Entries 06/02/17 06:29 06/02/17 08:49 Temperature 97.9 F Pulse Rate 87 Respiratory Rate 16 Blood Pressure 154/76 O2 Sat by Pulse Oximetry 98 Oxygen Delivery Method Room Air Weight: 98kg - HEENT Pupil (Motor): EOMI Mallampati: II Teeth: Edentulous Oral Opening: Greater than 3 - CERAMIC TILE INSTALLER LOC: Oriented CERAMIC TILE INSTALLER Motor: Normal RUE, Normal LUE, Normal RLE, Normal LLE, Normal Face CERAMIC TILE INSTALLER Sensory: Normal: RUE, LUE, RLE, LLE, Face - Cardiac Rhythm: Regular Murmur: None - Pulmonary Breath Sounds: bilateral Clear Respiratory Effort: Symmetrical Anesthesia Assess/Plan ASA Score: 3 Modified Jaime Scale for Level of Consciousness: Cooperative, oriented, and tranquil Anesthetic Plan: General Monitoring Plan: Standard Monitors Recovery Plan: PACU
[2017-06-02] MEDS ORDERED: Ondansetron 4 MG/2 ML VIAL ONE ×2 (11:01→13:07)
[2017-06-02] MEDS ORDERED: *HR* Succinylcholine 200 MG/10 ML VIAL IVP ONE (11:01)
[2017-06-02] MEDS ORDERED: Lidocaine -MPF 4% 5 ML AMPUL ONE (11:01)
[2017-06-02] MEDS ORDERED: Lidocaine -MPF 2% 2 ML VIAL ONE (11:01)
[2017-06-02] MEDS ORDERED: Dexamethasone 4 MG/ML VIAL ONE (11:01)
[2017-06-02] MEDS ORDERED: *HR* FentaNYL (PF) 100 MCG/2 ML VIAL ONE (11:02)
[2017-06-02] MEDS ORDERED: *HR* Propofol 200 MG/20 ML VIAL IVP ONE (11:02)
[2017-06-02] MEDS ORDERED: Lidocaine/EPI 1:100k 1% 20 ML VIAL ONE (11:55)
[2017-06-02] MEDS ORDERED: Lidocaine 1% 20 ML MDV ONE (11:55)
[2017-06-02] MEDS ORDERED: Bupivacaine/EPI 1:200k 0.25%PF 10 ML VIAL INFILT ONE (11:55)
[2017-06-02] MEDS ORDERED: Bupivacaine/EPI 1:200k 0.5%PF 10 ML VIAL ONE (12:05)
[2017-06-02] MEDS ORDERED: *HR* Etomidate 40 MG/20 ML VIAL IVP ONE (12:28)
[2017-06-02] MEDS ORDERED: Lidocaine -MPF 1% 2 ML VIAL INFILT ONE (13:32)
--- NOTE | 2017-06-02 14:17 | Anesthesia Evaluation Post Op ---
Date of Encounter: 06/02/17 Time of Encounter: 14:16 - Vital Signs Vital Signs: Vital Signs/O2 Sat, Most Current Temp Pulse Resp BP Pulse Ox 97.7 F 92 18 158/81 97 06/02/17 13:31 06/02/17 13:51 06/02/17 13:51 06/02/17 13:51 06/02/17 13:51 - Lungs Lungs: Clear Ascult./Percussion - Airway Airway: Non-obstructed - Cardiovascular Regular Rate - Mental Status Mental Status: Asleep with brisk response to light stimulation - Pain Pain Scale: 0 (denies) - Nausea Vomiting Nausea Vomiting: Not Present - Hydration Hydration: NPO - Discharge PostOp Status: Transfer Patient to floor
--- NOTE | 2017-06-02 14:54 | Orthopedic Operative Note ---
Date of procedure: 06/02/17 Procedure: OPERATIVE REPORT DATE OF PROCEDURE: 06/02/2017 SURGEON: Contreras Car MD SITE MANAGER(S): There were no assistants PREOPERATIVE DIAGNOSIS: Left hand index finger metacarpal and proximal phalangeal osteomyelitis, presumed POSTOPERATIVE DIAGNOSIS: Same PROCEDURE: Left index finger debridement and irrigation with curettage of the index metacarpal and proximal phalanx ANESTHESIA: General anesthesia PREOPERATIVE ANTIBIOTICS: And receiving Unasyn on the floor ESTIMATED BLOOD LOSS: 2 milliliters TOURNIQUET TIME: 21 minutes at 250 mmHg SPECIMENS: Index metacarpal head sample sent for culture and permanent biopsy as well as crystal analysis IMPLANTS: No implants LOCAL INJECTION: 0.5% bupivacaine with 1:200,000 epinephrine; 10 mL used in total PREOPERATIVE NOTE AND INDICATIONS: Rajesh is a 61-year-old male who has had a history of left hand cellulitis in the past. This current episode is concerning for osteomyelitis given x-ray changes involving the index metacarpal and index proximal phalanx. The recommendation was for the above procedure in order to confirm entry infection. The surgical plan was discussed with the patient. The risks, benefits, alternatives, and potential complications of this procedure were discussed with the patient including injury to veins, arteries, nerves, tendons, ligaments, and bone. Also discussed were the risks of infection, bleeding, pain, blood clots, the possible need for a blood transfusion, the possible need for further procedures, heart attack, stroke, and . All of this was explained in simple terms, and the patient verbalized understanding and wished to proceed. Consent was given to proceed with surgery. PROCEDURE: The patient was seen in the preoperative holding area where the identify and the consent were confirmed. The left hand was marked. Final questions were answered. The patient was brought back to the operating room and placed supine on the operating room table. A huddle was performed with the patient and all vital surgical team members confirming patient identity, the correct procedure, and the correct operative site. General anesthesia was administered. The left upper extremity was prepped and draped in the usual sterile fashion. A surgical time out was performed immediately preceding the incision with all personnel in the operating room to confirm patient identity, the correct operative site and extremity, correct radiographic studies, availability of appropriate surgical equipment, and agreement on the planned procedure. The limb was exsanguinated and the tourniquet was inflated. A longitudinal incision was made centered over the index metacarpophalangeal joint. Full- thickness flaps were created. The extensor mechanism was split longitudinally and the metacarpophalangeal joint identified. There was distention of the capsule and a 19-gauge needle was inserted into the joint but no fluid could be aspirated. A capsulotomy was performed and there is thickened synovial capsular tissue. The bony areas seen on x-ray were sharply curettaged and samples were sent for the above. There is no gross purulence and no necrotic tissue. The wound was copiously irrigated with 3 L of saline and the extensor mechanism was reapproximated using interrupted 4-0 FiberWire stitches. Skin was closed with interrupted nylon stitches. The instrument, sponge, and needle counts were correct after wound closure. POST OPERATIVE PLAN: Weight Bearing: Weightbearing as tolerated DVT Prophylaxis: Ambulation Activity: Avoid aggressive activities with the left upper extremity. Wound Care: Daily dressing changes Pain Control: Per the primary team Perioperative antibiotic prophylaxis: Continue antibiotic spell the primary team
--- NOTE | 2017-06-02 16:24 | Internal Med Progress Note ---
Date of Encounter: 06/02/17 Time of Encounter: 16:00 - Assessment and plan (1) Cellulitis of hand, left Current Visit: Yes Status: Acute Assessment and plan: -Orthopedics consulted with recommendations for incision and drainage which was done on 06/02/17. -Will continue IV antibiotics with vancomycin and Unasyn; until culture results known from incision and drainage above. (2) MARLENE (acute kidney injury) Current Visit: No Status: Resolved Assessment and plan: -MARLENE has not resolved. -Will restart home dose of Lasix and metolazone due to history of ischemic cardiomyopathy. -Continue to monitor (3) Ischemic cardiomyopathy Current Visit: Yes Status: Acute Assessment and plan: -Stable; continue statin, aspirin, Plavix and Imdur. (4) Diabetes mellitus Current Visit: No Status: Chronic Assessment and plan: -Glucose controlled; continue home insulin Qualifiers: Diabetes mellitus type: type 2 Diabetes mellitus complication status: with unspecified complications Diabetes mellitus longwall foreman insulin use: with [facility] use Qualified Code(s): E11.8 - Type 2 diabetes mellitus with unspecified complications; Z79.4 - [facility] (current) use of insulin; Z79.4 - intermission coordinator ( current) use of insulin; Z79.4 - [facility] (current) use of insulin; Z79.4 - [facility] (current) use of insulin (5) Hypertension Current Visit: Yes Status: Acute Assessment and plan: -Controlled; continue home medications Qualifiers: Hypertension type: essential hypertension Qualified Code(s): I10 - Essential (primary) hypertension (6) DVT prophylaxis Current Visit: No Status: Acute Assessment and plan: -Continue SCDs - Subjective Interval history: Patient recovering from sedation status post I&D of left hand. - Constitutional Vitals: Temp Pulse Resp BP Pulse Ox 98.2 F 91 16 142/76 95 06/02/17 14:01 06/02/17 14:11 06/02/17 14:11 06/02/17 14:11 06/02/17 14:11 General appearance: Present: A&O X 3, no acute distress - Expanded Lower Extremities Exam Lower Leg exam: Present: swelling (Left lower extremity edema with +1 pitting up to mid tibia) Internal Medicine: Result - Labs CBC & Chem 7: 06/02/17 07:43 06/02/17 07:43 Labs: Short CBC 06/02/17 Range/Units 07:43 WBC 4.7 (4.3-11.1) K/mcL Hgb 9.9 L (12.9-16.9) g/dL Hct 29.6 L (37.5-50.1) % Plt Count 140 (140-400) K/mcL Neutrophils # 3.1 (1.6-8.9) K/mcL BMP 06/02/17 07:43 Sodium 141 Potassium 4.0 Chloride 109 Carbon Dioxide 24 BUN 22 Creatinine 1.21 Glucose 123 H Calcium 8.2 L - Impressions Impressions Fluoroscopy 06/02/17 00:00 IMPRESSION: Intraprocedural fluoroscopic spot images as above. See separate procedure report for more information. D/ / 06/02/2017 14:29:25 Reuben Garces MD / beatriz Interpreting Provider: Reuben Garces MD - VTE Documentation of Mechanical Device: Venous foot pump, device Consult Discharge Plan - Plan Referrals: Uvaldo Fernandez MD [Primary Care Provider] -
[2017-06-02] MEDS: Vancomycin 1,500 MG in D5% in Water 250 ML IVPB SCH (18:54)
[2017-06-02] MEDS ORDERED: metOLazone 2.5 MG TABLET PO SCH (20:31)
[2017-06-02] MEDS: Furosemide 40 MG TABLET PO SCH (22:58)
[2017-06-02] MEDS: Insulin DETEMIR 100 UNIT/ML X5UNITS SQ SCH (23:06)
[2017-06-03] MEDS: *HR* Morphine 2 MG/ML SYRINGE IVP PRN ×4 (05:04→21:29)
[2017-06-03] MEDS: *HR* Heparin 5,000 UNIT/ML VIAL SQ SCH ×2 (05:04→17:34)
[2017-06-03] MEDS: Ampicillin/Sulbactam 3,000 MG in 0.9 % Sodium Chloride Mini Bag 100 ML IVPB SCH ×3 (05:05→17:33)
[2017-06-03 05:49] LABS: Basophils % 0.2 %; Hematocrit 29.2 % (37.5-50.1); Hemoglobin 9.8 g/dL (12.9-16.9); Immature Granulocytes % 0.5 % (0-4); Lymphocytes # 0.8 K/mcL (0.6-4.6); Lymphocytes % 12.3 %; Mean Corpuscular HGB Conc 33.6 g/dL (31.6-35.5); Mean Corpuscular Hemoglobin 31.5 pg (28.0-33.3); Mean Corpuscular Volume 93.9 fL (83.0-100.0); Mean Platelet Volume 9.7 fL (9.4-12.4); Monocytes # 0.4 K/mcL (0.0-1.3); Monocytes % 5.5 %; Neutrophils # 5.3 K/mcL (1.6-8.9); Platelet Count 147 K/mcL (140-400); Red Blood Count 3.11 M/mcL (4.19-5.50); Segmented Neutrophils % 81.5 %
[2017-06-03 06:14] LABS: Calcium 8.4 mg/dL (8.6-10.8); Potassium 4.1 mEq/L (3.5-4.5)
[2017-06-03] MEDS: Insulin LISPRO 300 UNITS/3 ML VIAL SQ SCH ×4 (08:36→21:33)
[2017-06-03] MEDS: Isosorbide MONOnitrate (24 HR) 60 MG TAB.ER.24H PO SCH (08:38)
[2017-06-03] MEDS: hydrALAZINE 25 MG TABLET PO SCH ×3 (08:38→21:30)
[2017-06-03] MEDS: Divalproex (24 HR) 500 MG TABLET PO SCH (08:38)
[2017-06-03] MEDS: Pantoprazole 40 MG VIAL IVP SCH (08:38)
[2017-06-03] MEDS: Furosemide 40 MG TABLET PO SCH ×2 (08:38→21:30)
[2017-06-03] MEDS: Aspirin 325 MG TABLET PO SCH (08:39)
[2017-06-03] MEDS: Silvasorb 44.4 ML TUBE TP SCH (08:44)
--- NOTE | 2017-06-03 11:04 | Orthopedics Progress Note ---
Date of Encounter: 06/03/17 Time of Encounter: 11:02 - Assessment and Plan (1) Cellulitis of hand, left Current Visit: Yes Status: Acute I did discuss the diagnosis in detail with patient. He has cellulitis of the left hand with osteomyelitis of the index metacarpal head and proximal phalangeal base. My recommendation was for debridement and irrigation of the left hand with curettage of the osteomyelitis and for culture and biopsy. I anticipate long-term antibiotics, IV. I will consult infectious disease as topically. The risks discussed included but were not limited to stiffness, bleeding, infection, blood clots, damage to neurovascular structures, tendons, ligaments, and bone. Also discussed was the risk of continued symptoms and possible need for further procedures. I did discuss the anesthesia risks including stroke, heart attack, and . I did discuss the reasonable, for stable postoperative course with the patient. He did wish to proceed and consent was obtained. In order to help plan the amount of surgical bony debridement I will order an MRI of the left hand to evaluate further areas of osteomyelitis. Subjective Interval history: S: Resting in bed comfortably Expected pain to the left hand, controlled O: Afebrile and vital signs are stable Erythema almost completely resolved Mild to moderate swelling The incision is clean, dry, and intact without drainage Stiffness related to pain and swelling The patient can actively flex and extend all digits, extend the thumb, cross the index and long fingers, make an okay sign, and oppose the thumb. The fingertips are all grossly sensate and well-perfused, and the radial artery pulse is 2+. OR specimens for crystal analysis surgical biopsy and culture all pending A: Left index metacarpal head and proximal phalangeal presumed osteomyelitis, possible gout P: Daily dressing changes Motion exercises to reduce the risk of stiffness; we will consult OT With the presumptive diagnosis of osteomyelitis would recommend 4-6 weeks of IV antibiotics We will defer decision to consult the infectious disease team to the hospitalist Objective Vital signs: Vital Signs Temp Pulse Resp BP Pulse Ox 06/03/17 07:33 98.1 F 92 16 149/77 97 06/03/17 01:03 97.9 F 87 15 137/80 06/02/17 21:35 98.0 F 74 14 134/72 98 06/02/17 16:42 98.5 F 93 16 154/84 98 06/02/17 14:11 91 16 142/76 95 06/02/17 14:01 98.2 F 89 16 148/74 95 06/02/17 13:51 92 18 158/81 97 06/02/17 13:41 93 17 162/89 98 06/02/17 13:31 97.7 F 102 20 171/89 98 Intake and Output 06/02/17 06/03/17 06/03/17 23:59 07:59 15:59 Intake Total 950 / 950 100 / 100 Output Total 475 / 475 450 / 450 Balance 475 / 475 -350 / -350 Intake: IV Fluids 100 / 100 100 / 100 Unasyn 3,000 MG In 0.9 % Sodium 100 / 100 100 / 100 Chloride (Mini-Bag +) 100 ML @ 200 mls/hr IVPB Q6HR [facility] Rx#: [id number] Oral 850 / 850 Output: Urine 475 / 475 450 / 450 Other: Meal Dinner Percent of Meal Consumed 65% Blood Glucose* 237 238 - Labs CBC & BMP: 06/03/17 05:25 06/03/17 05:10 Labs: Abnormal lab results RBC 3.11 M/mcL (4.19-5.50) L 06/03/17 05:25 Hgb 9.8 g/dL (12.9-16.9) L 06/03/17 05:25 Hct 29.2 % (37.5-50.1) L 06/03/17 05:25 RDW 15.0 % (11.5-14.5) H 06/03/17 05:25 ESR 70 mm/hr (0-10) H 05/31/17 16:09 Creatinine 1.47 mg/dL (0.72-1.25) H 06/03/17 05:10 Est GFR ( Amer) 59 (> 60) L 06/03/17 05:10 Est GFR (Non-Af Amer) 49 (> 60) L 06/03/17 05:10 Glucose 260 mg/dL (70-99) H 06/03/17 05:10 POC Glucose 238 (58-89) H 06/03/17 07:41 Lactic Acid 3.4 mmol/L (0.5-2.2) H 05/31/17 15:03 Uric Acid 12.0 mg/dL (3.5-7.2) H 05/31/17 16:09 Calcium 8.4 mg/dL (8.6-10.8) L 06/03/17 05:10 Magnesium 1.4 mg/dL (1.6-2.6) L 06/01/17 04:11 C-Reactive Protein 16 mg/L (Less than 5) H 05/31/17 16:09 B-Natriuretic Peptide 188 pg/mL (0-100) H 05/31/17 16:09 - VTE Documentation of Mechanical Device: Intermittent pneumatic compression device Consult Discharge Plan - Plan Referrals: Uvaldo Fernandez MD [Primary Care Provider] -
--- NOTE | 2017-06-03 17:41 | Internal Med Progress Note ---
Date of Encounter: 06/03/17 Time of Encounter: 11:00 - Assessment and plan (1) Cellulitis of hand, left Current Visit: Yes Status: Acute Assessment and plan: -Orthopedics consulted and Incision and drainage of Left index metacarpal head and proximal phalangeal presumed osteomyelitis on 06/02/17. -Recommendations for Daily dressing changes, motion exercises to reduce the risk of stiffness -Due to suspicion of osteomyelitis, will continue IV antibiotics for 4-6 weeks. -Patient will receive treatment at [facility] once precertification approved; social work following. (2) MARLENE (acute kidney injury) Current Visit: No Status: Resolved Assessment and plan: -MARLENE has not resolved. -Will restart home dose of Lasix and metolazone due to history of ischemic cardiomyopathy. -Continue to monitor (3) Ischemic cardiomyopathy Current Visit: Yes Status: Acute Assessment and plan: -Stable; continue statin, aspirin, Plavix and Imdur. (4) Diabetes mellitus Current Visit: No Status: Chronic Assessment and plan: -Glucose controlled; continue home insulin Qualifiers: Diabetes mellitus type: type 2 Diabetes mellitus complication status: with unspecified complications Diabetes mellitus intermediate insulin use: with local intermodal truck driver use Qualified Code(s): E11.8 - Type 2 diabetes mellitus with unspecified complications; Z79.4 - [facility] (current) use of insulin; Z79.4 - director long term care ( current) use of insulin; Z79.4 - [facility] (current) use of insulin; Z79.4 - director long term care (current) use of insulin (5) Hypertension Current Visit: Yes Status: Acute Assessment and plan: -Controlled; continue home medications Qualifiers: Hypertension type: essential hypertension Qualified Code(s): I10 - Essential (primary) hypertension (6) DVT prophylaxis Current Visit: No Status: Acute Assessment and plan: -Continue SCDs - Subjective Interval history: No acute events overnight. - Constitutional Vitals: Temp Pulse Resp BP Pulse Ox 98.0 F 85 18 138/80 99 06/03/17 15:48 06/03/17 15:48 06/03/17 15:48 06/03/17 15:48 06/03/17 15:48 General appearance: Present: A&O X 3, no acute distress - Respiratory Respiratory exam: Present: CTAB. Absent: accessory muscle use, rales, rhonchi, wheezes - Cardiovascular Cardiovascular exam: Present: RRR, +S1, +S2. Absent: diastolic murmur, gallop, rubs, systolic murmur Internal Medicine: Result - Labs CBC & Chem 7: 06/03/17 05:25 06/03/17 05:10 Labs: Short CBC 06/03/17 Range/Units 05:25 WBC 6.5 (4.3-11.1) K/mcL Hgb 9.8 L (12.9-16.9) g/dL Hct 29.2 L (37.5-50.1) % Plt Count 147 (140-400) K/mcL Neutrophils # 5.3 (1.6-8.9) K/mcL BMP 06/03/17 05:10 Sodium 138 Potassium 4.1 Chloride 106 Carbon Dioxide 25 BUN 24 Creatinine 1.47 H Glucose 260 H Calcium 8.4 L - VTE Documentation of Mechanical Device: Intermittent pneumatic compression device Consult Discharge Plan - Plan Referrals: Uvaldo Fernandez MD [Primary Care Provider] -
[2017-06-03] MEDS: Vancomycin 1,500 MG in D5% in Water 250 ML IVPB SCH (19:52)
[2017-06-03] MEDS: Insulin DETEMIR 100 UNIT/ML X5UNITS SQ SCH (21:29)
[2017-06-04] MEDS: Ampicillin/Sulbactam 3,000 MG in 0.9 % Sodium Chloride Mini Bag 100 ML IVPB SCH ×5 (01:24→23:44)
[2017-06-04] MEDS: *HR* Morphine 2 MG/ML SYRINGE IVP PRN ×6 (01:26→21:21)
[2017-06-04 05:42] LABS: Basophils % 0.1 %; Eosinophils # 0.1 K/mcL (0.0-0.6); Eosinophils % 1.8 %; Hematocrit 29.1 % (37.5-50.1); Hemoglobin 9.9 g/dL (12.9-16.9); Immature Granulocytes % 0.3 % (0-4); Lymphocytes # 1.4 K/mcL (0.6-4.6); Lymphocytes % 19.7 %; Mean Corpuscular Hemoglobin 32.1 pg (28.0-33.3); Mean Corpuscular Volume 94.5 fL (83.0-100.0); Mean Platelet Volume 9.7 fL (9.4-12.4); Monocytes # 0.4 K/mcL (0.0-1.3); Neutrophils # 5.3 K/mcL (1.6-8.9); Platelet Count 149 K/mcL (140-400); Red Blood Count 3.08 M/mcL (4.19-5.50); Red Cell Distribution Width 15.2 % (11.5-14.5); Segmented Neutrophils % 72.1 %
[2017-06-04 05:54] LABS: Calcium 8.4 mg/dL (8.6-10.8); Potassium 3.6 mEq/L (3.5-4.5)
[2017-06-04] MEDS: *HR* Heparin 5,000 UNIT/ML VIAL SQ SCH ×2 (06:12→17:01)
[2017-06-04] MEDS: hydrALAZINE 25 MG TABLET PO SCH ×3 (07:19→19:57)
[2017-06-04] MEDS: Furosemide 40 MG TABLET PO SCH ×2 (07:19→19:57)
[2017-06-04] MEDS: Aspirin 325 MG TABLET PO SCH (07:21)
[2017-06-04] MEDS: Pantoprazole 40 MG VIAL IVP SCH (07:21)
[2017-06-04] MEDS: Isosorbide MONOnitrate (24 HR) 60 MG TAB.ER.24H PO SCH (07:21)
[2017-06-04] MEDS: Divalproex (24 HR) 500 MG TABLET PO SCH (07:21)
[2017-06-04] MEDS: Silvasorb 44.4 ML TUBE TP SCH (07:27)
[2017-06-04] MEDS: Insulin LISPRO 300 UNITS/3 ML VIAL SQ SCH ×4 (07:33→19:52)
--- NOTE | 2017-06-04 09:18 | Orthopedics Progress Note ---
Date of Encounter: 06/04/17 Time of Encounter: 09:16 - Assessment and Plan (1) Cellulitis of hand, left Current Visit: Yes Status: Acute I did discuss the diagnosis in detail with patient. He has cellulitis of the left hand with osteomyelitis of the index metacarpal head and proximal phalangeal base. My recommendation was for debridement and irrigation of the left hand with curettage of the osteomyelitis and for culture and biopsy. I anticipate long-term antibiotics, IV. I will consult infectious disease as topically. The risks discussed included but were not limited to stiffness, bleeding, infection, blood clots, damage to neurovascular structures, tendons, ligaments, and bone. Also discussed was the risk of continued symptoms and possible need for further procedures. I did discuss the anesthesia risks including stroke, heart attack, and . I did discuss the reasonable, for stable postoperative course with the patient. He did wish to proceed and consent was obtained. In order to help plan the amount of surgical bony debridement I will order an MRI of the left hand to evaluate further areas of osteomyelitis. Subjective Interval history: S: Resting in bed comfortably Expected pain to the left hand, controlled O: Afebrile and vital signs are stable Mild erythema around the wound. Mild to moderate swelling The incision is clean, dry, and intact without drainage Stiffness related to pain and swelling The patient can actively flex and extend all digits, extend the thumb, cross the index and long fingers, make an okay sign, and oppose the thumb. The fingertips are all grossly sensate and well-perfused, and the radial artery pulse is 2+. I did call the lab for follow-up on the results. Bone biopsy and crystal analysis are pending. They had not yet begun to run the cultures and will begin doing so now so that a preliminary result will be available tomorrow. A: Left index metacarpal head and proximal phalangeal presumed osteomyelitis, possible gout P: Daily dressing changes Motion exercises to reduce the risk of stiffness; OT consulted With the presumptive diagnosis of osteomyelitis would recommend 4-6 weeks of IV antibiotics We will defer decision to consult the infectious disease team to the hospitalist Objective Vital signs: Vital Signs Temp Pulse Resp BP Pulse Ox 06/04/17 07:31 97.8 F 87 18 150/83 97 06/03/17 23:38 98.0 F 82 18 131/80 98 06/03/17 20:15 98.2 F 85 18 135/80 98 06/03/17 15:48 98.0 F 85 18 138/80 99 06/03/17 12:09 98.6 F 84 16 128/72 98 Intake and Output 06/03/17 06/04/17 06/04/17 23:59 07:59 15:59 Intake Total 1015 / 1015 200 / 200 Output Total 1350 / 1350 450 / 450 Balance 1015 / 1015 -1150 / -1150 -450 / -450 Intake: IV Fluids 700 / 700 200 / 200 Unasyn 3,000 MG In 0.9 % Sodium 200 / 200 200 / 200 Chloride (Mini-Bag +) 100 ML @ 200 mls/hr IVPB Q6HR [facility] Rx#: [id number] Vancocin 1,500 MG In Dextrose 5 500 / 500 % 250 ML @ 166.67 mls/hr IVPB Q24H [facility] Rx#:[id number] Oral 315 / 315 Output: Urine 1350 / 1350 450 / 450 Other: Meal Dinner Percent of Meal Consumed 100% Weight 98.5 kg Blood Glucose* 195 186 Patient Weight 06/04/17 23:59 Weight 98.5 kg - Labs CBC & BMP: 06/04/17 05:05 06/04/17 05:05 Labs: Abnormal lab results RBC 3.08 M/mcL (4.19-5.50) L 06/04/17 05:05 Hgb 9.9 g/dL (12.9-16.9) L 06/04/17 05:05 Hct 29.1 % (37.5-50.1) L 06/04/17 05:05 RDW 15.2 % (11.5-14.5) H 06/04/17 05:05 ESR 70 mm/hr (0-10) H 05/31/17 16:09 Creatinine 1.48 mg/dL (0.72-1.25) H 06/04/17 05:05 Est GFR ( Amer) 59 (> 60) L 06/04/17 05:05 Est GFR (Non-Af Amer) 49 (> 60) L 06/04/17 05:05 Glucose 171 mg/dL (70-99) H 06/04/17 05:05 POC Glucose 195 (58-89) H 06/03/17 20:39 Lactic Acid 3.4 mmol/L (0.5-2.2) H 05/31/17 15:03 Uric Acid 12.0 mg/dL (3.5-7.2) H 05/31/17 16:09 Calcium 8.4 mg/dL (8.6-10.8) L 06/04/17 05:05 Magnesium 1.4 mg/dL (1.6-2.6) L 06/01/17 04:11 C-Reactive Protein 16 mg/L (Less than 5) H 05/31/17 16:09 B-Natriuretic Peptide 188 pg/mL (0-100) H 05/31/17 16:09 - VTE Documentation of Mechanical Device: Intermittent pneumatic compression device Consult Discharge Plan - Plan Referrals: Uvaldo Fernandez MD [Primary Care Provider] -
[2017-06-04] MEDS: Vancomycin 1,500 MG in D5% in Water 250 ML IVPB SCH (16:12)
--- NOTE | 2017-06-04 18:31 | Internal Med Progress Note ---
Date of Encounter: 06/04/17 Time of Encounter: 12:00 - Assessment and plan (1) Cellulitis of hand, left Current Visit: Yes Status: Acute Assessment and plan: -Orthopedics consulted and Incision and drainage of Left index metacarpal head and proximal phalangeal presumed osteomyelitis on 06/02/17. -Recommendations for Daily dressing changes, motion exercises to reduce the risk of stiffness -Due to suspicion of osteomyelitis, will continue IV antibiotics for 4-6 weeks. -Patient will receive treatment at [facility] once precertification approved; social work following. (2) MARLENE (acute kidney injury) Current Visit: No Status: Resolved Assessment and plan: -MARLENE has not resolved. -Will restart home dose of Lasix and metolazone due to history of ischemic cardiomyopathy. -Continue to monitor (3) Ischemic cardiomyopathy Current Visit: Yes Status: Acute Assessment and plan: -Stable; continue statin, aspirin, Plavix and Imdur. (4) Diabetes mellitus Current Visit: No Status: Chronic Assessment and plan: -Glucose controlled; continue home insulin Qualifiers: Diabetes mellitus type: type 2 Diabetes mellitus complication status: with unspecified complications Diabetes mellitus usp insulin use: with terminal operations manager use Qualified Code(s): E11.8 - Type 2 diabetes mellitus with unspecified complications; Z79.4 - [facility] (current) use of insulin; Z79.4 - terminal operations manager ( current) use of insulin; Z79.4 - [facility] (current) use of insulin; Z79.4 - terminal operations manager (current) use of insulin (5) Hypertension Current Visit: Yes Status: Acute Assessment and plan: -Controlled; continue home medications Qualifiers: Hypertension type: essential hypertension Qualified Code(s): I10 - Essential (primary) hypertension (6) DVT prophylaxis Current Visit: No Status: Acute Assessment and plan: -Continue SCDs - Subjective Interval history: No acute events overnight. - Constitutional Vitals: Temp Pulse Resp BP Pulse Ox 99.6 F 94 20 138/73 97 06/04/17 15:22 06/04/17 15:22 06/04/17 15:22 06/04/17 15:22 06/04/17 15:22 General appearance: Present: A&O X 3, no acute distress - Respiratory Respiratory exam: Present: CTAB. Absent: accessory muscle use, rales, rhonchi, wheezes - Cardiovascular Cardiovascular exam: Present: RRR, +S1, +S2. Absent: diastolic murmur, gallop, rubs, systolic murmur Internal Medicine: Result - Labs CBC & Chem 7: 06/04/17 05:05 06/04/17 05:05 Labs: Short CBC 06/04/17 Range/Units 05:05 WBC 7.3 (4.3-11.1) K/mcL Hgb 9.9 L (12.9-16.9) g/dL Hct 29.1 L (37.5-50.1) % Plt Count 149 (140-400) K/mcL Neutrophils # 5.3 (1.6-8.9) K/mcL BMP 06/04/17 05:05 Sodium 140 Potassium 3.6 Chloride 102 Carbon Dioxide 29 BUN 24 Creatinine 1.48 H Glucose 171 H Calcium 8.4 L - VTE Documentation of Mechanical Device: Intermittent pneumatic compression device Consult Discharge Plan - Plan Referrals: Uvaldo Fernandez MD [Primary Care Provider] -
[2017-06-04] MEDS: Insulin DETEMIR 100 UNIT/ML X5UNITS SQ SCH (19:58)
[2017-06-05] MEDS: *HR* HYDROcodone/Acet 5/325 mg TABLET PO PRN ×3 (00:50→20:41)
[2017-06-05] MEDS: Ampicillin/Sulbactam 3,000 MG in 0.9 % Sodium Chloride Mini Bag 100 ML IVPB SCH ×3 (06:24→17:15)
[2017-06-05] MEDS: *HR* Heparin 5,000 UNIT/ML VIAL SQ SCH ×2 (06:25→17:14)
[2017-06-05 07:01] LABS: Basophils % 0.3 %; Eosinophils # 0.2 K/mcL (0.0-0.6); Hematocrit 30.4 % (37.5-50.1); Hemoglobin 10.2 g/dL (12.9-16.9); Immature Granulocytes % 0.4 % (0-4); Immature Platelets 4.1 % (1.1-6.1); Lymphocytes # 1.5 K/mcL (0.6-4.6); Lymphocytes % 18.7 %; Mean Corpuscular HGB Conc 33.6 g/dL (31.6-35.5); Mean Corpuscular Hemoglobin 31.8 pg (28.0-33.3); Mean Corpuscular Volume 94.7 fL (83.0-100.0); Mean Platelet Volume 9.5 fL (9.4-12.4); Monocytes # 0.6 K/mcL (0.0-1.3); Monocytes % 7.2 %; Neutrophils # 5.7 K/mcL (1.6-8.9); Platelet Count 188 K/mcL (140-400); Red Blood Count 3.21 M/mcL (4.19-5.50); Red Cell Distribution Width 15.1 % (11.5-14.5); Segmented Neutrophils % 71.4 %
[2017-06-05 07:13] LABS: BUN/Creatinine Ratio 17 (6-26); Blood Urea Nitrogen 25 mg/dL (8-26); Calcium 8.9 mg/dL (8.6-10.8); Carbon Dioxide 30 mEq/L (19-29); Chloride 98 mEq/L (98-109); Glucose 123 mg/dL (70-99); Osmolality,Calculated 296 (280-300); Potassium 3.3 mEq/L (3.5-4.5); Sodium 140 mEq/L (136-145); eGFR For African Americans > 60 (> 60); eGFR For Non-African Americans 50 (> 60)
--- NOTE | 2017-06-05 07:34 | Orthopedics Progress Note ---
Date of Encounter: 06/05/17 Time of Encounter: 07:32 - Assessment and Plan (1) Cellulitis of hand, left Current Visit: Yes Status: Acute I did discuss the diagnosis in detail with patient. He has cellulitis of the left hand with osteomyelitis of the index metacarpal head and proximal phalangeal base. My recommendation was for debridement and irrigation of the left hand with curettage of the osteomyelitis and for culture and biopsy. I anticipate long-term antibiotics, IV. I will consult infectious disease as topically. The risks discussed included but were not limited to stiffness, bleeding, infection, blood clots, damage to neurovascular structures, tendons, ligaments, and bone. Also discussed was the risk of continued symptoms and possible need for further procedures. I did discuss the anesthesia risks including stroke, heart attack, and . I did discuss the reasonable, for stable postoperative course with the patient. He did wish to proceed and consent was obtained. In order to help plan the amount of surgical bony debridement I will order an MRI of the left hand to evaluate further areas of osteomyelitis. Subjective Interval history: S: Resting in bed comfortably Significantly less throbbing in the left hand today O: Afebrile and vital signs are stable Mild erythema around the wound. Mild to moderate swelling with tenderness to palpation about the metacarpophalangeal joint The incision is clean, dry, and intact without drainage Stiffness related to pain and swelling The patient can actively flex and extend all digits, extend the thumb, cross the index and long fingers, make an okay sign, and oppose the thumb. The fingertips are all grossly sensate and well-perfused, and the radial artery pulse is 2+. Biopsy and crystals results are pending A: Left index metacarpal head and proximal phalangeal presumed osteomyelitis, possible gout P: Daily dressing changes Motion exercises to reduce the risk of stiffness; OT consulted With the presumptive diagnosis of osteomyelitis would recommend 4-6 weeks of IV antibiotics We will defer decision to consult the infectious disease team to the hospitalist Follow-up with me in the office in 1 week for clinical reevaluation or sooner if needed. Objective Vital signs: Vital Signs Temp Pulse Resp BP Pulse Ox 06/05/17 07:00 98.2 F 102 16 147/86 98 06/05/17 03:50 97.8 F 95 18 150/75 97 06/04/17 23:32 98.3 F 94 16 133/73 98 06/04/17 19:41 98.6 F 106 18 148/83 96 06/04/17 15:22 99.6 F 94 20 138/73 97 06/04/17 11:36 98.1 F 90 20 117/67 95 Intake and Output 06/04/17 06/04/17 06/05/17 15:59 23:59 07:59 Intake Total 700 / 700 1240 / 1240 250 / 250 Output Total 950 / 950 910 / 910 Balance -250 / -250 330 / 330 250 / 250 Intake: IV Fluids 100 / 100 350 / 350 100 / 100 Unasyn 3,000 MG In 0.9 % Sodium 100 / 100 100 / 100 100 / 100 Chloride (Mini-Bag +) 100 ML @ 200 mls/hr IVPB Q6HR [facility] Rx#: [id number] Vancocin 1,500 MG In Dextrose 5 250 / 250 % 250 ML @ 166.67 mls/hr IVPB Q24H [facility] Rx#:[id number] Oral 600 / 600 890 / 890 150 / 150 Output: Urine 950 / 950 910 / 910 Other: Meal Lunch Dinner Percent of Meal Consumed 85% 25% # Voids 1 # Bowel Movements 1 Weight 99.155 kg Blood Glucose* 179 199 Patient Weight 06/05/17 23:59 Weight 99.155 kg - Labs CBC & BMP: 06/05/17 06:54 06/05/17 06:54 Labs: Abnormal lab results RBC 3.21 M/mcL (4.19-5.50) L 06/05/17 06:54 Hgb 10.2 g/dL (12.9-16.9) L 06/05/17 06:54 Hct 30.4 % (37.5-50.1) L 06/05/17 06:54 RDW 15.1 % (11.5-14.5) H 06/05/17 06:54 ESR 70 mm/hr (0-10) H 05/31/17 16:09 Potassium 3.3 mEq/L (3.5-4.5) L 06/05/17 06:54 Carbon Dioxide 30 mEq/L (19-29) H 06/05/17 06:54 Creatinine 1.44 mg/dL (0.72-1.25) H 06/05/17 06:54 Est GFR (Non-Af Amer) 50 (> 60) L 06/05/17 06:54 Glucose 123 mg/dL (70-99) H 06/05/17 06:54 POC Glucose 199 (58-89) H 06/04/17 19:43 Lactic Acid 3.4 mmol/L (0.5-2.2) H 05/31/17 15:03 Uric Acid 12.0 mg/dL (3.5-7.2) H 05/31/17 16:09 Magnesium 1.4 mg/dL (1.6-2.6) L 06/01/17 04:11 C-Reactive Protein 16 mg/L (Less than 5) H 05/31/17 16:09 B-Natriuretic Peptide 188 pg/mL (0-100) H 05/31/17 16:09 - VTE Documentation of Mechanical Device: Intermittent pneumatic compression device Consult Discharge Plan - Plan Referrals: Uvaldo Fernandez MD [Primary Care Provider] -
[2017-06-05] MEDS: Insulin LISPRO 300 UNITS/3 ML VIAL SQ SCH ×4 (07:59→20:42)
[2017-06-05] MEDS: Pantoprazole 40 MG VIAL IVP SCH (08:11)
[2017-06-05] MEDS: Aspirin 325 MG TABLET PO SCH (08:11)
[2017-06-05] MEDS: Divalproex (24 HR) 500 MG TABLET PO SCH (08:12)
[2017-06-05] MEDS: hydrALAZINE 25 MG TABLET PO SCH ×3 (08:12→20:41)
[2017-06-05] MEDS: Isosorbide MONOnitrate (24 HR) 60 MG TAB.ER.24H PO SCH (08:12)
[2017-06-05] MEDS: Furosemide 40 MG TABLET PO SCH ×2 (08:12→20:41)
[2017-06-05] MEDS: Silvasorb 44.4 ML TUBE TP SCH (08:14)
[2017-06-05] MEDS ORDERED: Lidocaine -MPF 1% 5 ML AMPUL INFILT ONE (13:26)
[2017-06-05] MEDS: Vancomycin 1,500 MG in D5% in Water 250 ML IVPB SCH (15:38)
--- NOTE | 2017-06-05 20:25 | Internal Med Progress Note ---
Date of Encounter: 06/05/17 Time of Encounter: 11:00 - Assessment and plan (1) Cellulitis of hand, left Current Visit: Yes Status: Acute Assessment and plan: -Orthopedics consulted and Incision and drainage of Left index metacarpal head and proximal phalangeal presumed osteomyelitis on 06/02/17. -Recommendations for Daily dressing changes, motion exercises to reduce the risk of stiffness -Due to suspicion of osteomyelitis, will continue IV antibiotics for 4-6 weeks. -Patient will receive treatment at [facility] once precertification approved; social work following. (2) MARLENE (acute kidney injury) Current Visit: No Status: Resolved Assessment and plan: -MARLENE has not resolved. -Will restart home dose of Lasix and metolazone due to history of ischemic cardiomyopathy. -Continue to monitor (3) Ischemic cardiomyopathy Current Visit: Yes Status: Acute Assessment and plan: -Stable; continue statin, aspirin, Plavix and Imdur. (4) Diabetes mellitus Current Visit: No Status: Chronic Assessment and plan: -Glucose controlled; continue home insulin Qualifiers: Diabetes mellitus type: type 2 Diabetes mellitus complication status: with unspecified complications Diabetes mellitus prison insulin use: with termite exterminator helper use Qualified Code(s): E11.8 - Type 2 diabetes mellitus with unspecified complications; Z79.4 - detention (current) use of insulin; Z79.4 - rat exterminator ( current) use of insulin; Z79.4 - detention (current) use of insulin; Z79.4 - rat exterminator (current) use of insulin (5) Hypertension Current Visit: Yes Status: Acute Assessment and plan: -Controlled; continue home medications Qualifiers: Hypertension type: essential hypertension Qualified Code(s): I10 - Essential (primary) hypertension (6) DVT prophylaxis Current Visit: No Status: Acute Assessment and plan: -Continue SCDs - Subjective Interval history: No acute events overnight. - Constitutional Vitals: Temp Pulse Resp BP Pulse Ox 98.7 F 102 20 134/70 99 06/05/17 15:00 06/05/17 15:00 06/05/17 15:00 06/05/17 15:00 06/05/17 15:00 General appearance: Present: A&O X 3, no acute distress - Respiratory Respiratory exam: Present: CTAB. Absent: accessory muscle use, rales, rhonchi, wheezes - Cardiovascular Cardiovascular exam: Present: RRR, +S1, +S2. Absent: diastolic murmur, gallop, rubs, systolic murmur Internal Medicine: Result - Labs CBC & Chem 7: 06/05/17 06:54 06/05/17 06:54 Labs: Short CBC 06/05/17 Range/Units 06:54 WBC 8.0 (4.3-11.1) K/mcL Hgb 10.2 L (12.9-16.9) g/dL Hct 30.4 L (37.5-50.1) % Plt Count 188 (140-400) K/mcL Neutrophils # 5.7 (1.6-8.9) K/mcL BMP 06/05/17 06:54 Sodium 140 Potassium 3.3 L Chloride 98 Carbon Dioxide 30 H BUN 25 Creatinine 1.44 H Glucose 123 H Calcium 8.9 - VTE Documentation of Mechanical Device: Intermittent pneumatic compression device Consult Discharge Plan - Plan Referrals: Uvaldo Fernandez MD [Primary Care Provider] -
[2017-06-05] MEDS: Insulin DETEMIR 100 UNIT/ML X5UNITS SQ SCH (20:41)
[2017-06-06] MEDS: Ampicillin/Sulbactam 3,000 MG in 0.9 % Sodium Chloride Mini Bag 100 ML IVPB SCH ×3 (00:40→12:15)
[2017-06-06] MEDS: *HR* HYDROcodone/Acet 5/325 mg TABLET PO PRN ×3 (04:55→21:42)
[2017-06-06 05:13] LABS: Basophils % 0.1 %; Eosinophils # 0.1 K/mcL (0.0-0.6); Eosinophils % 1.2 %; Hematocrit 28.7 % (37.5-50.1); Hemoglobin 9.8 g/dL (12.9-16.9); Immature Granulocytes % 0.3 % (0-4); Lymphocytes # 1.1 K/mcL (0.6-4.6); Lymphocytes % 10.7 %; Mean Corpuscular HGB Conc 34.1 g/dL (31.6-35.5); Mean Corpuscular Hemoglobin 31.8 pg (28.0-33.3); Mean Corpuscular Volume 93.2 fL (83.0-100.0); Mean Platelet Volume 9.9 fL (9.4-12.4); Monocytes # 0.6 K/mcL (0.0-1.3); Monocytes % 5.7 %; Neutrophils # 8.4 K/mcL (1.6-8.9); Platelet Count 140 K/mcL (140-400); Red Blood Count 3.08 M/mcL (4.19-5.50); Red Cell Distribution Width 14.8 % (11.5-14.5)
[2017-06-06 05:27] LABS: Calcium 8.6 mg/dL (8.6-10.8); Potassium 3.1 mEq/L (3.5-4.5)
[2017-06-06] MEDS: *HR* Heparin 5,000 UNIT/ML VIAL SQ SCH ×2 (06:31→17:41)
[2017-06-06] MEDS: Silvasorb 44.4 ML TUBE TP SCH (07:53)
[2017-06-06] MEDS: Pantoprazole 40 MG VIAL IVP SCH (07:53)
[2017-06-06] MEDS: Insulin LISPRO 300 UNITS/3 ML VIAL SQ SCH ×4 (07:54→21:45)
[2017-06-06] MEDS: hydrALAZINE 25 MG TABLET PO SCH ×3 (07:55→21:41)
[2017-06-06] MEDS: Divalproex (24 HR) 500 MG TABLET PO SCH (07:55)
[2017-06-06] MEDS: Furosemide 40 MG TABLET PO SCH ×2 (07:55→21:41)
[2017-06-06] MEDS: Isosorbide MONOnitrate (24 HR) 60 MG TAB.ER.24H PO SCH (07:55)
[2017-06-06] MEDS: Aspirin 325 MG TABLET PO SCH (07:55)
--- NOTE | 2017-06-06 08:59 | Orthopedics Progress Note ---
Date of Encounter: 06/06/17 Time of Encounter: 08:58 - Assessment and Plan (1) Cellulitis of hand, left Current Visit: Yes Status: Acute I did discuss the diagnosis in detail with patient. He has cellulitis of the left hand with osteomyelitis of the index metacarpal head and proximal phalangeal base. My recommendation was for debridement and irrigation of the left hand with curettage of the osteomyelitis and for culture and biopsy. I anticipate long-term antibiotics, IV. I will consult infectious disease as topically. The risks discussed included but were not limited to stiffness, bleeding, infection, blood clots, damage to neurovascular structures, tendons, ligaments, and bone. Also discussed was the risk of continued symptoms and possible need for further procedures. I did discuss the anesthesia risks including stroke, heart attack, and . I did discuss the reasonable, for stable postoperative course with the patient. He did wish to proceed and consent was obtained. In order to help plan the amount of surgical bony debridement I will order an MRI of the left hand to evaluate further areas of osteomyelitis. Subjective Interval history: S: Resting in bed comfortably Continued improvement regarding pain to the left hand O: Afebrile and vital signs are stable Improved redness around the incision site Mild to moderate swelling with tenderness to palpation about the metacarpophalangeal joint The incision is clean, dry, and intact without drainage Stiffness related to pain and swelling The patient can actively flex and extend all digits, extend the thumb, cross the index and long fingers, make an okay sign, and oppose the thumb. The fingertips are all grossly sensate and well-perfused, and the radial artery pulse is 2+. Preliminary cultures are negative A: Left index metacarpal head and proximal phalangeal presumed osteomyelitis, possible gout P: Daily dressing changes Motion exercises to reduce the risk of stiffness; OT consulted With the presumptive diagnosis of osteomyelitis would recommend 4-6 weeks of IV antibiotics We will defer decision to consult the infectious disease team to the hospitalist Follow-up with me in the office in 1 week for clinical reevaluation or sooner if needed. Objective Vital signs: Vital Signs Temp Pulse Resp BP Pulse Ox 06/06/17 08:04 97 06/06/17 06:59 98.7 F 95 18 133/70 97 06/06/17 04:33 99.9 F H 97 18 124/67 97 06/06/17 01:51 98.6 F 102 17 132/73 96 06/05/17 20:37 98.7 F 99 16 132/74 97 06/05/17 15:00 98.7 F 102 20 134/70 99 06/05/17 10:04 98.4 F 98 16 144/87 96 Intake and Output 06/05/17 06/06/17 06/06/17 23:59 07:59 15:59 Intake Total 340 / 340 100 / 100 Output Total 925 / 925 700 / 700 350 / 350 Balance -585 / -585 -600 / -600 -350 / -350 Intake: IV Fluids 100 / 100 100 / 100 Unasyn 3,000 MG In 0.9 % Sodium 100 / 100 100 / 100 Chloride (Mini-Bag +) 100 ML @ 200 mls/hr IVPB Q6HR [facility] Rx#: [id number] Oral 240 / 240 Output: Urine 925 / 925 700 / 700 350 / 350 Other: Meal Dinner Percent of Meal Consumed 100% Blood Glucose* 191 161 - Labs CBC & BMP: 06/06/17 04:50 06/06/17 04:50 Labs: Abnormal lab results RBC 3.08 M/mcL (4.19-5.50) L 06/06/17 04:50 Hgb 9.8 g/dL (12.9-16.9) L 06/06/17 04:50 Hct 28.7 % (37.5-50.1) L 06/06/17 04:50 RDW 14.8 % (11.5-14.5) H 06/06/17 04:50 ESR 70 mm/hr (0-10) H 05/31/17 16:09 Potassium 3.1 mEq/L (3.5-4.5) L 06/06/17 04:50 Chloride 97 mEq/L (98-109) L 06/06/17 04:50 Carbon Dioxide 31 mEq/L (19-29) H 06/06/17 04:50 Creatinine 1.59 mg/dL (0.72-1.25) H 06/06/17 04:50 Est GFR ( Amer) 54 (> 60) L 06/06/17 04:50 Est GFR (Non-Af Amer) 45 (> 60) L 06/06/17 04:50 Glucose 152 mg/dL (70-99) H 06/06/17 04:50 POC Glucose 191 (58-89) H 06/05/17 20:39 Lactic Acid 3.4 mmol/L (0.5-2.2) H 05/31/17 15:03 Uric Acid 12.0 mg/dL (3.5-7.2) H 05/31/17 16:09 Magnesium 1.4 mg/dL (1.6-2.6) L 06/01/17 04:11 C-Reactive Protein 16 mg/L (Less than 5) H 05/31/17 16:09 B-Natriuretic Peptide 188 pg/mL (0-100) H 05/31/17 16:09 - VTE Documentation of Mechanical Device: Intermittent pneumatic compression device Consult Discharge Plan - Plan Referrals: Uvaldo Fernandez MD [Primary Care Provider] -
--- NOTE | 2017-06-06 14:46 | Infectious Disease Consult ---
Date of Encounter: 06/06/17 Time of Encounter: 14:43 Assessment and Plan (1) Hand osteomyelitis, left Status: Acute Assessment and plan: Causative organism not clear. No history of trauma. Status post left index finger debridement and irrigation with curettage of the index metacarpal and proximal phalanx on 06/02/17. Intra-Op cultures from 06/02/17 have been no growth to date. Pathology report is also pending. Op report describes chalky material with questionable gout: Patient tells me he never had gout in the past. Patient will probably need at least 6 weeks worth of IV antibiotics including vancomycin and I will do Levaquin. Patient's most recent vancomycin trough was 17.53 days ago but this was his creatinine was only 1.21. Creatinine has been creeping up and I'm concerned for the vancomycin. I did call Judith from pharmacy and discussed the case with her. Based trough is being drawn out for p.m. we will monitor closely. Goal Vanco trough is 15 but I wanted to er on the side of caution. Duration of treatment is probably 6 weeks depending on the clinical picture. PICC line has been placed. Patient to be sent to group home on vancomycin and Levaquin. Patient follow-up with us in clinic in 2 weeks. While on antibiotics we will need to check weekly CBC, BMP, ESR and CRP and vancomycin trough. Qualifiers: Osteomyelitis type: other acute Qualified Code(s): M86.142 - Other acute osteomyelitis, left hand (2) Cellulitis of hand, left Status: Acute (3) Diabetes mellitus Status: Chronic Qualifiers: Diabetes mellitus type: type 2 Diabetes mellitus complication status: with unspecified complications Diabetes mellitus mcc insulin use: with mcc use Qualified Code(s): E11.8 - Type 2 diabetes mellitus with unspecified complications; Z79.4 - long-term (current) use of insulin; Z79.4 - long-term ( current) use of insulin; Z79.4 - intermission coordinator (current) use of insulin; Z79.4 - long-term (current) use of insulin (4) History of coronary artery disease Status: Chronic (5) MARLENE (acute kidney injury) Status: Resolved Assessment and plan: Patient has never been dialyzed before. Creatinine is close to his baseline. Infectious Disease HPI - Data of Consult Patient: new to practice Consult date: 06/06/17 Requesting Physician: Jan Kramer MD Primary Care Provider: Uvaldo Fernandez MD - Consult Narrative Reason for consult: osteomyelitis History of present illness: Mr. Willis is a 61 year old male Patient is a 61-year-old gentleman who was admitted to [facility] on 05/31/17 with cellulitis and osteomyelitis of the left hand, we are consulted for antibiotics recommendation on 06/06/17. Patient is a 61-year-old gentleman with past medical history mentioned below including diabetes mellitus type 2, hypertension, coronary artery disease and history of arrhythmia status post pacemaker placement in the past, history of CVA and history of chronic kidney disease came in to the hospital after one week of pain and swelling in the left hand. Patient apparently was seen as an outpatient at an outside hospital and was started on oral antibiotics. Im not sure what antibiotics with the patient started on. Apparently the antibiotic does not help. Patient was evaluated by orthopedics on the day of admission and x-ray revealed possible osteomyelitis so patient was sent to the MRSA department for evaluation. Initially on admission patient was afebrile but today MAXIMUM TEMPERATURE was 99.9. Patient is also tachycardic with a heart rate in the high 90s. Labs revealed no leukocytosis with a WBC today of 10.2 with neutrophil predominance. Patient is also in acute kidney injury and creatinine has increased from 1.2- 1.59. On 06/02/17 patient had left index finger debridement and irrigation with curettage of the index metacarpal and proximal phalanx. Intra-Op cultures from 06/02/17 have been no growth to date. Blood cultures were also obtained and have been negative. Pathology report is also pending. Currently patient is on vancomycin and Unasyn. Most recent vancomycin trough was done on 06/03/17 I was 17.5. Currently patient laying in bed and appears comfortable. Apparently is also missing the third and fourth digit on the left and due to previous accident back in 1989. I asked the patient he had any trauma to his left and and he adamantly said no. I asked the patient is in a.m. only has a dog but he had no bug bites or scratches. He shouldn't does not garden. Patient is retired currently not working. CC: Jan Kramer MD Past Med Surg Social Fam HX - Past Medical History Medical history: asthma, CHF, COPD, coronary artery disease, CVA, diabetes, hyperlipidemia, hypertension, myocardial infarction, other Psychiatric history: no psych history - Past Surgical History Surgical History: angioplasty/stent, cataract, cholecystectomy, herniorrhaphy, knee replacement, orthopedic, other, pacemaker/AICD - Social History Smoking Status: Former smoker Smokeless Tobacco Status: No Alcohol use: none Drug use: none - Family History Father Living Status: Cause of : Cancer Hx Family Cancer: Yes (Lung cancer) Hx Family Endocrine Disorder: Yes (diabetes) Mother Living Status: Still Living Infectious Disease-CN:Meds Atorvastatin Calcium [Lipitor] 80 mg PO HS #0 11/20/15 [History] Divalproex (24 HR) [Depakote ER (24 HR)] 500 mg PO DAILY 11/20/15 [History] Gemfibrozil [Lopid] 600 mg PO BIDWM 11/20/15 [History] Glimepiride [Amaryl] 4 mg PO BID #0 11/20/15 [History] Methocarbamol [Robaxin] 500 mg PO Q6HR PRN 11/20/15 [History] Nitroglycerin [Nitrostat] 0.4 mg SL Q5M PRN #0 11/20/15 [History] Omeprazole [PriLOSEC] 20 mg PO DAILY 11/20/15 [History] SitaGLIPtin [Januvia] 100 mg PO DAILY 11/20/15 [History] hydrALAZINE [HydrALAZINE] 37.5 mg PO TID 11/20/15 [History] Albuterol Sulfate [Ventolin Hfa] 2 puff IH Q4H PRN 05/31/17 [History] Aspirin 325 mg PO DAILY 05/31/17 [History] Clopidogrel [Plavix] 75 mg PO DAILY 05/31/17 [History] Doxycycline Monohydrate [Mondoxyne Nl] 100 mg PO BID 05/31/17 [History] Furosemide [Lasix] 80 mg PO BID 05/31/17 [History] HYDROcodone/Acet 5/325 mg [[place] 5-325 mg] 1 tab PO BID PRN 05/31/17 [History] Insulin NPH Human Isophane [Novolin N] 10 unit SQ QPM 05/31/17 [History] Insulin NPH Human Isophane [Novolin N] 20 unit SQ QAM 05/31/17 [History] Insulin Regular, Human [Novolin R] 6 unit SQ BID 05/31/17 [History] Isosorbide MONOnitrate (24 HR) [Imdur] 60 mg PO DAILY 05/31/17 [History] Morphine Sulfate [Arymo ER] 15 mg PO Q12H PRN 05/31/17 [History] [place]-3/Dha/Epa/Fish Oil [Fish Oil 1,000 mg Softgel] 1,000 mg PO BID 05/31/17 [ History] Potassium Chloride [K-Tab ER] 20 meq PO BID 05/31/17 [History] metOLazone [Zaroxolyn] 2.5 mg PO FR 05/31/17 [History] 3 Allergy/AdvReac Type Severity Reaction Status Date / Time butorphanol [From Stadol] Allergy Unconscious Verified 05/31/17 11:56 fenofibrate [From Tricor] Allergy rhabdomylos Verified 05/31/17 11:56 is Review of systems: 10 point review of systems done negative other for what is mentioned in history of present illness Exam - Constitutional Vitals: Temp Pulse Resp BP Pulse Ox 98.2 F 92 20 157/71 99 06/06/17 11:08 06/06/17 11:08 06/06/17 11:08 06/06/17 11:08 06/06/17 11:08 General appearance: febrile, no acute distress - Head Head exam: Present: atraumatic, normocephalic - Eye Eye exam: Present: EOMI, PERRL - Neck Neck exam: Present: full ROM. Absent: meningismus - Respiratory Respiratory exam: Present: CTAB. Absent: rhonchi, wheezes - Cardiovascular Cardiovascular exam: Present: RRR, +S1, +S2 Additional comments: No murmur - GI/Abdominal GI/Abdominal exam: Present: normal bowel sounds, soft. Absent: tenderness - Extremities Exam Additional comments: Left hand with the index finger mildly swollen and deformed us for a had his surgery he also has the distal phalanx of the third and fourth digit gone due to an accident back in 1989 - Neurological Exam Neurological exam: Present: alert, oriented X3. Absent: speech deficit - Skin Skin exam: Absent: rash Infectious Disease CN: Results - Labs CBC & Chem 7: 06/06/17 04:50 06/06/17 04:50 Cultures: Cultures 06/02/17 12:55 Surgical Biopsy Culture - Preliminary Left Index Finger - VTE Documentation of Mechanical Device: Intermittent pneumatic compression device Consult Discharge Plan - Plan Referrals: Uvaldo Fernandez MD [Primary Care Provider] -
--- NOTE | 2017-06-06 16:01 | Internal Med Progress Note ---
Date of Encounter: 06/06/17 Time of Encounter: 15:55 - Assessment and plan (1) Hand osteomyelitis, left Current Visit: Yes Status: Acute Assessment and plan: s/p I & D of Left index finger PICC line placed in for equipment operator intermodal yard IV Abx So far blood cx, wound cx from I & D - sowed no growth consulted ID, who recommend cont Vancomycin and adding Levaquin instead of Unasyn Also recommend 6 weeks of IV abx need close f/u with ID as an out pt Due to his MARLENE with CKD -2, need close monitoring of vancomycin trough levels on him Qualifiers: Qualified Code(s): M86.9 - Osteomyelitis, unspecified (2) Cellulitis of hand, left Current Visit: Yes Status: Acute Assessment and plan: s/p I & D improving Cont broad spec abx (3) MARLENE (acute kidney injury) Current Visit: No Status: Resolved Assessment and plan: Could be due to Abx / Sepsis induced ATN Cont close monitoring of meds Renally dosed all abx Will hold Lasix for today (4) CKD (chronic kidney disease) stage 2, GFR 60-89 ml/min Current Visit: Yes Status: Chronic (5) Diabetes mellitus Current Visit: No Status: Chronic Assessment and plan: -Glucose controlled; continue home insulin Qualifiers: Diabetes mellitus type: type 2 Diabetes mellitus complication status: with unspecified complications Diabetes mellitus snf insulin use: with equipment operator intermodal yard use Qualified Code(s): E11.8 - Type 2 diabetes mellitus with unspecified complications; Z79.4 - long-term (current) use of insulin; Z79.4 - termination clerk ( current) use of insulin; Z79.4 - termination clerk (current) use of insulin; Z79.4 - long-term (current) use of insulin (6) History of coronary artery disease Current Visit: No Status: Chronic Assessment and plan: Resumed all home meds (7) DVT prophylaxis Current Visit: No Status: Acute Assessment and plan: -Continue SCDs (8) Ischemic cardiomyopathy Current Visit: Yes Status: Acute Assessment and plan: -Stable; continue statin, aspirin, Plavix and Imdur Also cont home dose of Lasix - Subjective Interval history: Mr. Willis is a 61 year old male with past medical history of diabetes hypertension CAD with stent placement pacemaker CKD -2 and CVA pt presented to ER with worsening swelling and erythema to left hand for approximate one-week. He was seen as an outpatient and [facility] was given antibiotics both oral and IM with no improvement. Edema and the area region spreading beyond previously drawn borders despite antibiotic treatment. Pt was admitted here for IV abx and seen by Ortho. His Left hand x ray showed osteomyelitis of the base of the 2nd proximal phalanx and te adjacent 2nd metacarpal head. Pt did go for I & D of Left index finger done on 06/02/17. As per Ortho notes cartilage surfaces of the proximal phalanx and metacarpal head were intact. There was a chalky granular substance in the joint which appared to be gout. Pt was continued on IV Abx Unasyn and Vancomycin. He denied any new complaints now. Hand pain is tolerable with meds. - Constitutional Vitals: Temp Pulse Resp BP Pulse Ox 100.4 F H 96 18 152/72 99 06/06/17 15:26 06/06/17 15:26 06/06/17 15:26 06/06/17 15:26 06/06/17 15:26 General appearance: Present: A&O X 3, no acute distress - Head Head exam: Present: atraumatic, normal inspection - Respiratory Respiratory exam: Present: CTAB. Absent: accessory muscle use, rales, rhonchi, wheezes - Cardiovascular Cardiovascular exam: Present: RRR, +S1, +S2. Absent: diastolic murmur, gallop, rubs, systolic murmur - GI/Abdominal GI/Abdominal exam: Present: normal bowel sounds, soft. Absent: rebound, rigid - Extremities Exam Extremities exam: Absent: calf tenderness Additional comments: Improving swelling and erythema noticed in Left hand at base of 1st and 2nd metacarpal joints. Clean incision noticed over Left index finger - Back Exam Back exam: Absent: CVA tenderness (L), CVA tenderness (R) - Neurological Exam Neurological exam: Present: alert, oriented X3 - Psychiatric Psychiatric exam: Present: normal affect, normal mood Internal Medicine: Result - Labs CBC & Chem 7: 06/06/17 04:50 06/06/17 04:50 Labs: Short CBC 06/06/17 Range/Units 04:50 WBC 10.2 (4.3-11.1) K/mcL Hgb 9.8 L (12.9-16.9) g/dL Hct 28.7 L (37.5-50.1) % Plt Count 140 (140-400) K/mcL Neutrophils # 8.4 (1.6-8.9) K/mcL BMP 06/06/17 04:50 Sodium 138 Potassium 3.1 L Chloride 97 L Carbon Dioxide 31 H BUN 25 Creatinine 1.59 H Glucose 152 H Calcium 8.6 - VTE Documentation of Mechanical Device: Intermittent pneumatic compression device Consult Discharge Plan - Plan Referrals: Uvaldo Fernandez MD [Primary Care Provider] -
[2017-06-06] MEDS ORDERED: Levofloxacin 500 MG/100 ML 500 MG/100 ML BAG IVPB SCH ×2 (17:00→19:00)
[2017-06-06] MEDS ORDERED: 0.9 % Sodium Chloride Mini Bag 100 ML ONE (17:30)
[2017-06-06] MEDS: Vancomycin 1,500 MG in D5% in Water 250 ML IVPB SCH (17:39)
[2017-06-06] MEDS: Famotidine 20 MG TABLET PO SCH (21:40)
[2017-06-06] MEDS: Insulin DETEMIR 100 UNIT/ML X5UNITS SQ SCH (21:45)
[2017-06-07] MEDS: *HR* Heparin 5,000 UNIT/ML VIAL SQ SCH ×2 (05:10→17:24)
--- NOTE | 2017-06-07 07:45 | Orthopedics Progress Note ---
Date of Encounter: 06/07/17 Time of Encounter: 07:45 - Assessment and Plan (1) Cellulitis of hand, left Current Visit: Yes Status: Acute I did discuss the diagnosis in detail with patient. He has cellulitis of the left hand with osteomyelitis of the index metacarpal head and proximal phalangeal base. My recommendation was for debridement and irrigation of the left hand with curettage of the osteomyelitis and for culture and biopsy. I anticipate long-term antibiotics, IV. I will consult infectious disease as topically. The risks discussed included but were not limited to stiffness, bleeding, infection, blood clots, damage to neurovascular structures, tendons, ligaments, and bone. Also discussed was the risk of continued symptoms and possible need for further procedures. I did discuss the anesthesia risks including stroke, heart attack, and . I did discuss the reasonable, for stable postoperative course with the patient. He did wish to proceed and consent was obtained. In order to help plan the amount of surgical bony debridement I will order an MRI of the left hand to evaluate further areas of osteomyelitis. Subjective Interval history: S: Resting in bed comfortably Continued improvement regarding pain to the left hand O: Afebrile and vital signs are stable Improved redness around the incision site Mild to moderate swelling with tenderness to palpation about the metacarpophalangeal joint The incision is clean, dry, and intact without drainage Stiffness related to pain and swelling The patient can actively flex and extend all digits, extend the thumb, cross the index and long fingers, make an okay sign, and oppose the thumb. The fingertips are all grossly sensate and well-perfused, and the radial artery pulse is 2+. Preliminary cultures are negative A: Left index metacarpal head and proximal phalangeal presumed osteomyelitis, possible gout P: Daily dressing changes Motion exercises to reduce the risk of stiffness; OT consulted With the presumptive diagnosis of osteomyelitis would recommend 4-6 weeks of IV antibiotics We will defer decision to consult the infectious disease team to the hospitalist Follow-up with me in the office in 1 week for clinical reevaluation or sooner if needed. Objective Vital signs: Vital Signs Temp Pulse Resp BP Pulse Ox 06/07/17 07:00 98.8 F 89 16 137/81 99 06/06/17 23:43 98.6 F 95 17 133/76 98 06/06/17 18:47 99.0 F 107 16 159/82 98 06/06/17 15:26 100.4 F H 96 18 152/72 99 06/06/17 11:08 98.2 F 92 20 157/71 99 06/06/17 08:04 97 Intake and Output 06/06/17 06/06/17 06/07/17 15:59 23:59 07:59 Intake Total 100 / 100 950 / 950 Output Total 750 / 750 800 / 800 300 / 300 Balance -650 / -650 150 / 150 -300 / -300 Intake: IV Fluids 100 / 100 350 / 350 Unasyn 3,000 MG In 0.9 % Sodium 100 / 100 Chloride (Mini-Bag +) 100 ML @ 200 mls/hr IVPB Q6HR [facility] Rx#: [id number] Levaquin Premix 500mg/100mL 500 100 / 100 mg In 100 ml @ 100 mls/hr IVPB Q24H [facility] Rx#:[id number] Vancocin 1,500 MG In Dextrose 5 250 / 250 % 250 ML @ 166.67 mls/hr IVPB Q24H [facility] Rx#:[id number] Oral 600 / 600 Output: Urine 750 / 750 800 / 800 300 / 300 Other: Stool Size Large Stool Consistency soft # Bowel Movements 1 Weight 99.1 kg Blood Glucose* 217 271 127 Patient Weight 06/07/17 23:59 Weight 99.1 kg - Labs CBC & BMP: 06/06/17 04:50 06/06/17 04:50 Labs: Abnormal lab results RBC 3.08 M/mcL (4.19-5.50) L 06/06/17 04:50 Hgb 9.8 g/dL (12.9-16.9) L 06/06/17 04:50 Hct 28.7 % (37.5-50.1) L 06/06/17 04:50 RDW 14.8 % (11.5-14.5) H 06/06/17 04:50 ESR 70 mm/hr (0-10) H 05/31/17 16:09 Potassium 3.1 mEq/L (3.5-4.5) L 06/06/17 04:50 Chloride 97 mEq/L (98-109) L 06/06/17 04:50 Carbon Dioxide 31 mEq/L (19-29) H 06/06/17 04:50 Creatinine 1.59 mg/dL (0.72-1.25) H 06/06/17 04:50 Est GFR ( Amer) 54 (> 60) L 06/06/17 04:50 Est GFR (Non-Af Amer) 45 (> 60) L 06/06/17 04:50 Glucose 152 mg/dL (70-99) H 06/06/17 04:50 POC Glucose 271 (58-89) H 06/06/17 20:53 Lactic Acid 3.4 mmol/L (0.5-2.2) H 05/31/17 15:03 Uric Acid 12.0 mg/dL (3.5-7.2) H 05/31/17 16:09 Magnesium 1.4 mg/dL (1.6-2.6) L 06/01/17 04:11 C-Reactive Protein 16 mg/L (Less than 5) H 05/31/17 16:09 B-Natriuretic Peptide 188 pg/mL (0-100) H 05/31/17 16:09 - VTE Documentation of Mechanical Device: Intermittent pneumatic compression device Consult Discharge Plan - Plan Referrals: Uvaldo Fernandez MD [Primary Care Provider] -
[2017-06-07] MEDS: hydrALAZINE 25 MG TABLET PO SCH ×3 (07:46→21:03)
[2017-06-07] MEDS: Divalproex (24 HR) 500 MG TABLET PO SCH (07:46)
[2017-06-07] MEDS: Furosemide 40 MG TABLET PO SCH (07:47)
[2017-06-07] MEDS: Isosorbide MONOnitrate (24 HR) 60 MG TAB.ER.24H PO SCH (07:47)
[2017-06-07] MEDS: Aspirin 325 MG TABLET PO SCH (07:47)
[2017-06-07] MEDS: Famotidine 20 MG TABLET PO SCH ×2 (07:47→21:03)
[2017-06-07] MEDS: Insulin LISPRO 300 UNITS/3 ML VIAL SQ SCH ×4 (07:48→21:08)
[2017-06-07] MEDS: *HR* HYDROcodone/Acet 5/325 mg TABLET PO PRN ×2 (07:53→15:06)
[2017-06-07] MEDS ORDERED: Aminoglycoside Consult 1 EACH MC ONE (09:58)
[2017-06-07] MEDS: Silvasorb 44.4 ML TUBE TP SCH (12:17)
[2017-06-07 13:37] LABS: Basophils % 0.2 %; Eosinophils # 0.2 K/mcL (0.0-0.6); Eosinophils % 1.2 %; Hematocrit 31.5 % (37.5-50.1); Hemoglobin 10.8 g/dL (12.9-16.9); Immature Granulocytes % 0.3 % (0-4); Lymphocytes # 1.7 K/mcL (0.6-4.6); Lymphocytes % 13.1 %; Mean Corpuscular HGB Conc 34.3 g/dL (31.6-35.5); Mean Corpuscular Volume 93.2 fL (83.0-100.0); Mean Platelet Volume 9.4 fL (9.4-12.4); Monocytes # 0.7 K/mcL (0.0-1.3); Monocytes % 5.2 %; Platelet Count 192 K/mcL (140-400); Red Blood Count 3.38 M/mcL (4.19-5.50); Red Cell Distribution Width 14.8 % (11.5-14.5)
[2017-06-07 13:50] LABS: Calcium 9.2 mg/dL (8.6-10.8); Magnesium 1.7 mg/dL (1.6-2.6); Potassium 3.4 mEq/L (3.5-4.5)
--- NOTE | 2017-06-07 14:18 | Infectious Disease Progress No ---
Date of Encounter: 06/07/17 Time of Encounter: 14:17 - Assessment and Plan (1) Gout Current Visit: Yes Status: Acute Location: Left hand. Surgical pathology of tissue from the left index finger metacarpal bone is suggestive of gouty tophus. No OM noted on pathology and intra-op cultures are negative. Discontinue antibiotics and observe. Case discussed with Dr. Car. Qualifiers: Gout site: hand Gout etiology: unspecified cause Chronicity: acute Laterality: left Qualified Code(s): M10.9 - Gout, unspecified (2) Hand osteomyelitis, left Current Visit: Yes Status: Ruled-out The patient had left hand pain and redness and swelling concerning for cellulitis. Failed outpatient oral antibiotics. Status post I & D of the left hand 06/02/17. Intra-operative cultures are negative. Pathology negative for OM. The patient's symptoms were likely related to gout. Will stop antibiotics and observe. Qualifiers: Osteomyelitis type: other acute Qualified Code(s): M86.142 - Other acute osteomyelitis, left hand (3) Cellulitis of hand, left Current Visit: Yes Status: Ruled-out (4) MARLENE (acute kidney injury) Current Visit: No Status: Acute Etiology unclear, but possibly secondary to Vanc administration with history of CKD although vanc troughs have not been too high. Will discontinue Vancomycin now since no infection isolated on culture or pathology. Consider nephrology consult for further evaluation. (5) History of coronary artery disease Current Visit: No Status: Chronic (6) CKD (chronic kidney disease) stage 2, GFR 60-89 ml/min Current Visit: Yes Status: Chronic (7) Diabetes mellitus Current Visit: No Status: Chronic Recommend aggressive glucose monitoring and control to promote wound healing and prevent re-infection. Qualifiers: Diabetes mellitus type: type 2 Diabetes mellitus complication status: with unspecified complications Diabetes mellitus probation worker insulin use: with probation worker use Qualified Code(s): E11.8 - Type 2 diabetes mellitus with unspecified complications; Z79.4 - [facility] (current) use of insulin; Z79.4 - [facility] ( current) use of insulin; Z79.4 - [facility] (current) use of insulin; Z79.4 - [facility] (current) use of insulin - Subjective Interval history: Patient seen and examined. No acute events noted overnight. Patient resting quietly in bed. Complains of mild pain in the left hand, but improved since admission. Denies fevers, chills, or rigors, but low-grade fever noted last night. Denies chest pain, shortness of breath, or cough. Denies nausea, vomiting , or diarrhea. Denies abdominal pain. Denies oral thrush or skin lesions. Infect Dis PN-Objective Data - Labs CBC & Chem 7: 06/07/17 13:24 06/07/17 13:24 Labs: Laboratory Results - last 24 hr 06/06/17 06/06/17 06/07/17 16:33 20:53 13:24 WBC 12.6 H RBC 3.38 L Hgb 10.8 L Hct 31.5 L MCV 93.2 MCH 32.0 MCHC 34.3 RDW 14.8 H Plt Count 192 MPV 9.4 Immature Gran % 0.3 Seg Neutrophils % 80.0 Lymphocytes % 13.1 Monocytes % 5.2 Eosinophils % 1.2 Basophils % 0.2 Neutrophils # 10.0 H Lymphocytes # 1.7 Monocytes # 0.7 Eosinophils # 0.2 Basophils # 0.0 Sodium Potassium Chloride Carbon Dioxide BUN Creatinine Est GFR ( Amer) Est GFR (Non-Af Amer) BUN/Creatinine Ratio Glucose POC Glucose 271 H Calculated Osmolality Calcium Magnesium Vancomycin Trough 18.5 06/07/17 13:24 WBC RBC Hgb Hct MCV MCH MCHC RDW Plt Count MPV Immature Gran % Seg Neutrophils % Lymphocytes % Monocytes % Eosinophils % Basophils % Neutrophils # Lymphocytes # Monocytes # Eosinophils # Basophils # Sodium 137 Potassium 3.4 L Chloride 94 L Carbon Dioxide 31 H BUN 25 Creatinine 1.69 H Est GFR ( Amer) 51 L Est GFR (Non-Af Amer) 42 L BUN/Creatinine Ratio 15 Glucose 273 H POC Glucose Calculated Osmolality 298 Calcium 9.2 Magnesium 1.7 Vancomycin Trough Cultures: Cultures 06/02/17 12:55 Anaerobic Culture - Preliminary Left Index Finger At this time, no anaerobic growth is present. The culture will be finalized after 5 days of incubation. 06/02/17 12:55 Surgical Biopsy Culture - Preliminary Left Index Finger Exam - Constitutional Vitals: Temp Pulse Resp BP Pulse Ox 98.4 F 94 16 141/78 98 06/07/17 10:10 06/07/17 10:10 06/07/17 10:10 06/07/17 10:10 06/07/17 10:10 General appearance: cooperative, no acute distress, obese - Head Head exam: Present: atraumatic, normal inspection, normocephalic - Eye Eye exam: Present: EOMI, normal appearance, PERRL Pupils: Present: normal accommodation - ENT ENT exam: Present: mucous membranes moist - Neck Neck exam: Present: normal inspection - Respiratory Respiratory exam: Present: CTAB. Absent: rales, respiratory distress, rhonchi, wheezes - Cardiovascular Cardiovascular exam: Present: RRR, +S1, +S2 - GI/Abdominal GI/Abdominal exam: Present: normal bowel sounds, soft. Absent: distended, tenderness - Extremities Exam Extremities exam: Present: joint swelling (left hand), tenderness (left hand). Absent: pedal edema Additional comments: Left hand dressing C/D/I. Minimal swelling noted of the distal fingers. Discoloration of the hand improving. ROM of the fingers not assessed. + sensation to distal fingers. - Neurological Exam Neurological exam: Present: alert, oriented X3, no focal deficits - Psychiatric Psychiatric exam: Present: normal affect, normal mood - Skin Skin exam: Present: dry, intact, normal color, warm - Additional findings Additional findings: PICC line noted to the RUE with transparent dressing C/D/I. - VTE Documentation of Mechanical Device: Intermittent pneumatic compression device Consult Discharge Plan - Plan Referrals: Uvaldo Fernandez MD [Primary Care Provider] - Prescriptions: HYDROcodone/Acet 5/325 mg [[place] 5-325 mg] 1 tab PO Q6HR PRN #20 tablet PRN Reason: Pain Levofloxacin 500 MG/100 ML [Levaquin Premix 500mg/100mL] 500 mg IVPB DAILY #40 bag Morphine Sulfate [Arymo ER] 15 mg PO Q12H #10 tab.po.er - Attending Attestation I examined this patient and my medical decision-making was reviewed with the Resident Physician. I agree with the documented findings, disposition and treatment plan as described except to the extent set forth below.
--- NOTE | 2017-06-07 15:41 | Internal Med Progress Note ---
Date of Encounter: 06/07/17 Time of Encounter: 15:00 - Assessment and plan (1) Hand osteomyelitis, left Current Visit: Yes Status: Ruled-out Assessment and plan: s/p I & D of Left index finger So far blood cx, wound cx from I & D - showed no growth Tissue ( Bone ) pathology came back as Gout No signs of osteomyelitis ID recommend to d/c abx will cont supportive care monitor him closely with out abx for next 24hrs Qualifiers: Osteomyelitis type: other acute Qualified Code(s): M86.142 - Other acute osteomyelitis, left hand (2) Cellulitis of hand, left Current Visit: Yes Status: Ruled-out Assessment and plan: s/p I & D improved (3) MARLENE (acute kidney injury) Current Visit: No Status: Acute Assessment and plan: Could be due to Abx / Sepsis induced ATN Cont close monitoring of meds stopped abx Held Lasix (4) CKD (chronic kidney disease) stage 2, GFR 60-89 ml/min Current Visit: Yes Status: Chronic (5) Diabetes mellitus Current Visit: No Status: Chronic Assessment and plan: -Glucose controlled; continue home insulin Qualifiers: Diabetes mellitus type: type 2 Diabetes mellitus complication status: with unspecified complications Diabetes mellitus terminal gauger supervisor insulin use: with terminal gauger supervisor use Qualified Code(s): E11.8 - Type 2 diabetes mellitus with unspecified complications; Z79.4 - terminal gauger supervisor (current) use of insulin; Z79.4 - terminal gauger supervisor ( current) use of insulin; Z79.4 - group home (current) use of insulin; Z79.4 - group home (current) use of insulin (6) History of coronary artery disease Current Visit: No Status: Chronic Assessment and plan: Resumed all home meds (7) DVT prophylaxis Current Visit: No Status: Acute Assessment and plan: -Continue SCDs (8) Ischemic cardiomyopathy Current Visit: Yes Status: Acute Assessment and plan: Stable; continue statin, aspirin, Plavix and Imdur Also cont home dose of Lasix - Subjective Interval history: Mr. Willis is a 61 year old male with past medical history of diabetes hypertension CAD with stent placement pacemaker CKD -2 and CVA pt presented to ER with worsening swelling and erythema to left hand for approximate one-week. He was seen as an outpatient and [facility] was given antibiotics both oral and IM with no improvement. Edema and the area region spreading beyond previously drawn borders despite antibiotic treatment. Pt was admitted here for IV abx and seen by Ortho. His Left hand x ray showed osteomyelitis of the base of the 2nd proximal phalanx and te adjacent 2nd metacarpal head. Pt did go for I & D of Left index finger done on 06/02/17. As per Ortho notes cartilage surfaces of the proximal phalanx and metacarpal head were intact. There was a chalky granular substance in the joint which appeared to be gout. Pt was continued on IV Abx Levaqui and Vancomycin. He denied any new complaints now. Hand pain is tolerable with meds. Erythema and swelling in hand also improved - Constitutional Vitals: Temp Pulse Resp BP Pulse Ox 98.4 F 94 16 141/78 98 06/07/17 10:10 06/07/17 10:10 06/07/17 10:10 06/07/17 10:10 06/07/17 10:10 General appearance: Present: A&O X 3, no acute distress - Head Head exam: Present: atraumatic, normal inspection - Neck Neck exam general surgery: Present: supple - Respiratory Respiratory exam: Present: decreased breath sounds. Absent: rales, respiratory distress, rhonchi, wheezes - Cardiovascular Cardiovascular exam: Present: RRR, +S1, +S2. Absent: systolic murmur - GI/Abdominal GI/Abdominal exam: Present: normal bowel sounds, soft. Absent: rebound, rigid, tenderness - Extremities Exam Extremities exam: Absent: calf tenderness, pedal edema Additional comments: Improving erythema and swelling in Left hand.Clean incision noticed - Back Exam Back exam: Absent: CVA tenderness (L), CVA tenderness (R) - Neurological Exam Neurological exam: Present: alert, oriented X3 - Psychiatric Psychiatric exam: Present: normal affect, normal mood Internal Medicine: Result - Labs CBC & Chem 7: 06/07/17 13:24 06/07/17 13:24 Labs: Short CBC 06/07/17 Range/Units 13:24 WBC 12.6 H (4.3-11.1) K/mcL Hgb 10.8 L (12.9-16.9) g/dL Hct 31.5 L (37.5-50.1) % Plt Count 192 (140-400) K/mcL Neutrophils # 10.0 H (1.6-8.9) K/mcL [facility] 06/07/17 13:24 Sodium 137 Potassium 3.4 L Chloride 94 L Carbon Dioxide 31 H BUN 25 Creatinine 1.69 H Glucose 273 H Calcium 9.2 - VTE Documentation of Mechanical Device: Intermittent pneumatic compression device Consult Discharge Plan - Plan Referrals: Uvaldo Fernandez MD [Primary Care Provider] - Prescriptions: HYDROcodone/Acet 5/325 mg [[place] 5-325 mg] 1 tab PO Q6HR PRN #20 tablet PRN Reason: Pain Levofloxacin 500 MG/100 ML [Levaquin Premix 500mg/100mL] 500 mg IVPB DAILY #40 bag Morphine Sulfate [Arymo ER] 15 mg PO Q12H #10 tab.po.er
[2017-06-07] MEDS: Insulin DETEMIR 100 UNIT/ML X5UNITS SQ SCH (21:04)
[2017-06-08] MEDS: *HR* HYDROcodone/Acet 5/325 mg TABLET PO PRN ×3 (00:11→12:31)
[2017-06-08] MEDS: *HR* Heparin 5,000 UNIT/ML VIAL SQ SCH (06:05)
[2017-06-08 06:18] LABS: Basophils % 0.2 %; Eosinophils # 0.2 K/mcL (0.0-0.6); Eosinophils % 1.8 %; Hematocrit 28.4 % (37.5-50.1); Hemoglobin 9.5 g/dL (12.9-16.9); Immature Granulocytes % 0.4 % (0-4); Lymphocytes # 1.3 K/mcL (0.6-4.6); Mean Corpuscular HGB Conc 33.5 g/dL (31.6-35.5); Mean Corpuscular Hemoglobin 31.4 pg (28.0-33.3); Mean Corpuscular Volume 93.7 fL (83.0-100.0); Mean Platelet Volume 9.5 fL (9.4-12.4); Monocytes # 0.6 K/mcL (0.0-1.3); Monocytes % 6.6 %; Platelet Count 172 K/mcL (140-400); Red Blood Count 3.03 M/mcL (4.19-5.50); Red Cell Distribution Width 14.7 % (11.5-14.5)
[2017-06-08 06:29] LABS: Potassium 3.2 mEq/L (3.5-4.5)
--- NOTE | 2017-06-08 07:47 | Orthopedics Progress Note ---
Date of Encounter: 06/08/17 Time of Encounter: 07:45 - Assessment and Plan (1) Cellulitis of hand, left Current Visit: Yes Status: Ruled-out I did discuss the diagnosis in detail with patient. He has cellulitis of the left hand with osteomyelitis of the index metacarpal head and proximal phalangeal base. My recommendation was for debridement and irrigation of the left hand with curettage of the osteomyelitis and for culture and biopsy. I anticipate long-term antibiotics, IV. I will consult infectious disease as topically. The risks discussed included but were not limited to stiffness, bleeding, infection, blood clots, damage to neurovascular structures, tendons, ligaments, and bone. Also discussed was the risk of continued symptoms and possible need for further procedures. I did discuss the anesthesia risks including stroke, heart attack, and . I did discuss the reasonable, for stable postoperative course with the patient. He did wish to proceed and consent was obtained. In order to help plan the amount of surgical bony debridement I will order an MRI of the left hand to evaluate further areas of osteomyelitis. Subjective Interval history: S: Resting in bed comfortably Continued improvement regarding pain to the left hand O: Afebrile and vital signs are stable Improved redness around the incision site Mild to moderate swelling with tenderness to palpation about the metacarpophalangeal joint The incision is clean, dry, and intact without drainage Stiffness related to pain and swelling The patient can actively flex and extend all digits, extend the thumb, cross the index and long fingers, make an okay sign, and oppose the thumb. The fingertips are all grossly sensate and well-perfused, and the radial artery pulse is 2+. Culture results are negative. Biopsy does not show osteomyelitis. Biopsy suggests tophaceous gout A: Tophaceous gout to the index finger metacarpophalangeal joint P: Daily dressing changes Motion exercises to reduce the risk of stiffness; OT consulted Recommend referral to rheumatology for management of gout Follow-up with me in the office in 1 week for suture removal Objective Vital signs: Vital Signs Temp Pulse Resp BP Pulse Ox 06/08/17 07:26 98.0 F 85 16 138/78 97 06/08/17 00:03 99.0 F 100 14 146/75 97 06/07/17 18:37 99.5 F 93 16 133/69 97 06/07/17 15:41 98.6 F 86 18 144/73 98 06/07/17 10:10 98.4 F 94 16 141/78 98 Intake and Output 06/07/17 06/07/17 06/08/17 15:59 23:59 07:59 Intake Total 830 / 830 180 / 180 Output Total 925 / 925 0 / 0 300 / 300 Balance -95 / -95 180 / 180 -300 / -300 Intake: Oral 830 / 830 180 / 180 Output: Urine 925 / 925 0 / 0 300 / 300 Other: Meal Lunch Percent of Meal Consumed 75% Blood Glucose* 248 217 219 - Labs CBC & BMP: 06/08/17 06:05 06/08/17 06:05 Labs: Abnormal lab results RBC 3.03 M/mcL (4.19-5.50) L 06/08/17 06:05 Hgb 9.5 g/dL (12.9-16.9) L 06/08/17 06:05 Hct 28.4 % (37.5-50.1) L 06/08/17 06:05 RDW 14.7 % (11.5-14.5) H 06/08/17 06:05 ESR 70 mm/hr (0-10) H 05/31/17 16:09 Potassium 3.2 mEq/L (3.5-4.5) L 06/08/17 06:05 Chloride 97 mEq/L (98-109) L 06/08/17 06:05 Carbon Dioxide 31 mEq/L (19-29) H 06/08/17 06:05 Creatinine 1.50 mg/dL (0.72-1.25) H 06/08/17 06:05 Est GFR ( Amer) 58 (> 60) L 06/08/17 06:05 Est GFR (Non-Af Amer) 48 (> 60) L 06/08/17 06:05 Glucose 224 mg/dL (70-99) H 06/08/17 06:05 POC Glucose 248 (58-89) H 06/07/17 15:42 Lactic Acid 3.4 mmol/L (0.5-2.2) H 05/31/17 15:03 Uric Acid 12.0 mg/dL (3.5-7.2) H 05/31/17 16:09 C-Reactive Protein 16 mg/L (Less than 5) H 05/31/17 16:09 B-Natriuretic Peptide 188 pg/mL (0-100) H 05/31/17 16:09 - VTE Documentation of Mechanical Device: Intermittent pneumatic compression device Consult Discharge Plan - Plan Referrals: Uvaldo Fernandez MD [Primary Care Provider] - Prescriptions: HYDROcodone/Acet 5/325 mg [[place] 5-325 mg] 1 tab PO Q6HR PRN #20 tablet PRN Reason: Pain Levofloxacin 500 MG/100 ML [Levaquin Premix 500mg/100mL] 500 mg IVPB DAILY #40 bag Morphine Sulfate [Arymo ER] 15 mg PO Q12H #10 tab.po.er
[2017-06-08] MEDS: Isosorbide MONOnitrate (24 HR) 60 MG TAB.ER.24H PO SCH (08:19)
[2017-06-08] MEDS: hydrALAZINE 25 MG TABLET PO SCH (08:19)
[2017-06-08] MEDS: Famotidine 20 MG TABLET PO SCH (08:19)
[2017-06-08] MEDS: Aspirin 325 MG TABLET PO SCH (08:19)
[2017-06-08] MEDS: Divalproex (24 HR) 500 MG TABLET PO SCH (08:19)
[2017-06-08] MEDS: Silvasorb 44.4 ML TUBE TP SCH (08:21)
[2017-06-08] MEDS: Insulin LISPRO 300 UNITS/3 ML VIAL SQ SCH ×2 (08:21→12:27)
[2017-06-08 10:57] VITALS: BP 139/77
--- NOTE | 2017-06-08 12:42 | Discharge Summary ---
Date of Encounter: 06/08/17 Time of Encounter: 12:41 - Discharge Diagnosis (1) Gout Priority: Secondary Status: Acute Qualifiers: Gout site: hand Gout etiology: unspecified cause Chronicity: acute Laterality: left Qualified Code(s): M10.9 - Gout, unspecified (2) Hand osteomyelitis, left Priority: Primary Status: Ruled-out Comments: ruled out Qualifiers: Osteomyelitis type: other acute Qualified Code(s): M86.142 - Other acute osteomyelitis, left hand (3) Cellulitis of hand, left Priority: Primary Status: Ruled-out (4) MARLENE (acute kidney injury) Priority: Primary Status: Acute (5) CKD (chronic kidney disease) stage 2, GFR 60-89 ml/min Priority: Secondary Status: Chronic (6) Diabetes mellitus Priority: Secondary Status: Chronic Qualifiers: Diabetes mellitus type: type 2 Diabetes mellitus complication status: with unspecified complications Diabetes mellitus argon tester insulin use: with assisted use Qualified Code(s): E11.8 - Type 2 diabetes mellitus with unspecified complications; Z79.4 - MCC (current) use of insulin; Z79.4 - MCC ( current) use of insulin; Z79.4 - MCC (current) use of insulin; Z79.4 - MCC (current) use of insulin (7) History of coronary artery disease Priority: Secondary Status: Chronic (8) DVT prophylaxis Priority: Secondary Status: Acute (9) Ischemic cardiomyopathy Priority: Secondary Status: Chronic - Discharge Medications Prescriptions: HYDROcodone/Acet 5/325 mg [[place] 5-325 mg] 1 tab PO Q6HR PRN #20 tablet PRN Reason: Pain Morphine Sulfate [Arymo ER] 15 mg PO Q12H #10 tab.po.er Home Medications: Atorvastatin Calcium [Lipitor] 80 mg PO HS #0 11/20/15 [History] Divalproex (24 HR) [Depakote ER (24 HR)] 500 mg PO DAILY 11/20/15 [History] Gemfibrozil [Lopid] 600 mg PO BIDWM 11/20/15 [History] Glimepiride [Amaryl] 4 mg PO BID #0 11/20/15 [History] Methocarbamol [Robaxin] 500 mg PO Q6HR PRN 11/20/15 [History] Nitroglycerin [Nitrostat] 0.4 mg SL Q5M PRN #0 11/20/15 [History] Omeprazole [PriLOSEC] 20 mg PO DAILY 11/20/15 [History] hydrALAZINE [HydrALAZINE] 37.5 mg PO TID 11/20/15 [History] Albuterol Sulfate [Ventolin Hfa] 2 puff IH Q4H PRN 05/31/17 [History] Aspirin 325 mg PO DAILY 05/31/17 [History] Clopidogrel [Plavix] 75 mg PO DAILY 05/31/17 [History] Furosemide [Lasix] 80 mg PO BID 05/31/17 [History] Insulin Regular, Human [Novolin R] 6 unit SQ BID 05/31/17 [History] Isosorbide MONOnitrate (24 HR) [Imdur] 60 mg PO DAILY 05/31/17 [History] Winston-3/Dha/Epa/Fish Oil [Fish Oil 1,000 mg Softgel] 1,000 mg PO BID 05/31/17 [ History] Potassium Chloride [K-Tab ER] 20 meq PO BID 05/31/17 [History] metOLazone [Zaroxolyn] 2.5 mg PO FR 05/31/17 [History] HYDROcodone/Acet 5/325 mg [[place] 5-325 mg] 1 tab PO Q6HR PRN #20 tablet [Rx] Morphine Sulfate [Arymo ER] 15 mg PO Q12H #10 tab.po.er 06/07/17 [Rx] Silvasorb 1 appl TP DAILY tube 06/07/17 [Rx] Allergies/Adverse Reactions: 3 Allergy/AdvReac Type Severity Reaction Status Date / Time butorphanol [From Stadol] Allergy Unconscious Verified 05/31/17 11:56 fenofibrate [From Tricor] Allergy rhabdomylos Verified 05/31/17 11:56 is Date of admission: 05/31/17 20:20 Primary care physician: Uvaldo Fernandez MD Consults: 06/02/17 13:32 Consult to Invasive Line Access Team [CONS] Routine Reason for Consult: Picc Line Insertion Line Type: PICC 06/02/17 15:04 Consult to Adult Neurologist [CONS] Routine Reason for SW Consult: discharge planning 06/04/17 09:15 Consult to Occupational Therapy [CONS] Routine Comment: Evaluate, develop and implement POC Reason for Consult: Motion exercises to the left hand. 06/05/17 13:26 Consult to Invasive Line Access Team [CONS] Routine Reason for Consult: Picc Line Insertion Line Type: PICC 06/06/17 11:46 Consult to Infectious Diseases [CONS] Routine Consulting Provider: Infectious Disease [place] Reason for Consult: Osteomyelitis of index finger Call Completed: Yes - Patient Status Disposition: Home, Self-Care Condition: Good Overall status at discharge: patient is back to baseline - Discharge Instructions Follow Up With: Uvaldo Fernandez MD [Primary Care Provider] - 06/15/17 9:30 am Contreras Car MD [Partnered Physician] - Matt Cadet DO [Partnered Physician] - Additional Instructions: Need to f/u with Ortho Dr. Car in one week Need to f/u with Hel[facility] C[facility] Dr. Cadet in 1 week - Diet and Activity Activity: increase activity as tolerated Diet: low salt diet Hospital course: Mr. Willis is a 61 year old male with past medical history of diabetes hypertension CAD with stent placement pacemaker CKD -2 and CVA pt presented to ER with worsening swelling and erythema to left hand for approximate one-week. He was seen as an outpatient and [facility] was given antibiotics both oral and IM with no improvement. Edema and the area region spreading beyond previously drawn borders despite antibiotic treatment. Pt was admitted here for IV abx and seen by Ortho. His Left hand x ray showed osteomyelitis of the base of the 2nd proximal phalanx and te adjacent 2nd metacarpal head. Pt did go for I & D of Left index finger done on 06/02/17. As per Ortho notes cartilage surfaces of the proximal phalanx and metacarpal head were intact. There was a chalky granular substance in the joint which appeared to be gout. Pt was continued on IV Abx Levaqui and Vancomycin. However his wound cx, tissue cx and blood cx all are came back as negative. His tissue biopsy results came back numerous refractile crystal consistent with uric acid. At this point ID decided to stop all his IV Abx and treat him as gout. Unable to placed him on NSAIDs due to CKD- 3. Recommend to continue Tylenol PRN and already on ASA 325mg daily.. He does have elevated uric acid, since it is acute flare up did not initiate any Uricosuric drugs now. Recommend to f/u with [facility] as an out pt in one week. - Time Spent with Patient Total time spent providing and/or coordinating discharge services: - Constitutional Vitals: Temp Pulse Resp BP Pulse Ox 98.1 F 91 18 139/77 100 06/08/17 10:56 06/08/17 10:56 06/08/17 10:56 06/08/17 10:56 06/08/17 10:56 General appearance: Present: A&O X 3, no acute distress - Head Head exam: Present: atraumatic, normal inspection - Respiratory Respiratory exam: Present: decreased breath sounds, wheezes (mild). Absent: rales, respiratory distress, rhonchi - Cardiovascular Cardiovascular exam: Present: RRR, +S1, +S2. Absent: systolic murmur - GI/Abdominal GI/Abdominal exam: Present: normal bowel sounds, soft. Absent: rebound, rigid, tenderness - Extremities Exam Extremities exam: Absent: calf tenderness, pedal edema, tenderness Additional comments: improved erythema and swelling in Left hand index finger. Sutures intact. No active discharge / drainage noticed. - Back Exam Back exam: Absent: CVA tenderness (L), CVA tenderness (R) - Neurological Exam Neurological exam: Present: alert, oriented X3 - Psychiatric Psychiatric exam: Present: normal affect, normal mood - VTE Documentation of Mechanical Device: Intermittent pneumatic compression device
[2017-06-08] MEDS ORDERED: FLUARIX QUAD 2017-18 36MOS UP/PF 0.5 ML SYRINGE IM ONE (13:34)
--- NOTE | 2017-06-08 16:05 | Infectious Disease Progress No ---
Date of Encounter: 06/08/17 Time of Encounter: 16:03 - Assessment and Plan (1) Gout Status: Acute Location: Left hand. Surgical pathology of tissue from the left index finger metacarpal bone is suggestive of gouty tophus. No OM noted on pathology and intra-op cultures are negative. Continue to observe off antibiotics. Case discussed with Dr. Car. Qualifiers: Gout site: hand Gout etiology: unspecified cause Chronicity: acute Laterality: left Qualified Code(s): M10.9 - Gout, unspecified (2) Hand osteomyelitis, left Status: Ruled-out The patient had left hand pain and redness and swelling concerning for cellulitis. Failed outpatient oral antibiotics. Status post I & D of the left hand 06/02/17. Intra-operative cultures are negative. Pathology negative for OM. The patient's symptoms were likely related to gout. Continue to observe off antibiotics. Qualifiers: Osteomyelitis type: other acute Qualified Code(s): M86.142 - Other acute osteomyelitis, left hand (3) Cellulitis of hand, left Status: Ruled-out (4) MARLENE (acute kidney injury) Status: Acute Etiology unclear, but possibly secondary to Vanc administration with history of CKD although vanc troughs have not been too high. Renal function improved this morning. Consider nephrology consult for further evaluation. (5) History of coronary artery disease Status: Chronic (6) CKD (chronic kidney disease) stage 2, GFR 60-89 ml/min Status: Chronic (7) Diabetes mellitus Status: Chronic Recommend aggressive glucose monitoring and control to promote wound healing and prevent re-infection. Qualifiers: Diabetes mellitus type: type 2 Diabetes mellitus complication status: with unspecified complications Diabetes mellitus fpc insulin use: with petroleum terminal plant operator use Qualified Code(s): E11.8 - Type 2 diabetes mellitus with unspecified complications; Z79.4 - long term care administrator (current) use of insulin; Z79.4 - long-term ( current) use of insulin; Z79.4 - long term care administrator (current) use of insulin; Z79.4 - long-term (current) use of insulin - Subjective Interval history: Patient seen and examined. No acute events noted overnight. Patient sitting up in the bedside chair. States he is ready to go home. Complains of mild pain in the left hand, but improved since admission. Denies fevers, chills, or rigors. Denies chest pain, shortness of breath, or cough. Denies nausea, vomiting, or diarrhea. Denies abdominal pain. Denies oral thrush or skin lesions. Infect Dis PN-Objective Data - Labs CBC & Chem 7: 06/08/17 06:05 06/08/17 06:05 Labs: Laboratory Results - last 24 hr 06/06/17 06/06/17 06/06/17 06:59 11:09 16:18 WBC RBC Hgb Hct MCV MCH MCHC RDW Plt Count MPV Immature Gran % Seg Neutrophils % Lymphocytes % Monocytes % Eosinophils % Basophils % Neutrophils # Lymphocytes # Monocytes # Eosinophils # Basophils # Sodium Potassium Chloride Carbon Dioxide BUN Creatinine Est GFR ( Amer) Est GFR (Non-Af Amer) BUN/Creatinine Ratio Glucose POC Glucose 161 H 217 H 214 H Calculated Osmolality Calcium 06/07/17 06/07/17 06/07/17 07:35 11:50 15:42 WBC RBC Hgb Hct MCV MCH MCHC RDW Plt Count MPV Immature Gran % Seg Neutrophils % Lymphocytes % Monocytes % Eosinophils % Basophils % Neutrophils # Lymphocytes # Monocytes # Eosinophils # Basophils # Sodium Potassium Chloride Carbon Dioxide BUN Creatinine Est GFR ( Amer) Est GFR (Non-Af Amer) BUN/Creatinine Ratio Glucose POC Glucose 127 H 246 H 248 H Calculated Osmolality Calcium 06/08/17 06/08/17 06/08/17 06:05 06:05 07:30 WBC 9.1 RBC 3.03 L Hgb 9.5 L Hct 28.4 L MCV 93.7 MCH 31.4 MCHC 33.5 RDW 14.7 H Plt Count 172 MPV 9.5 Immature Gran % 0.4 Seg Neutrophils % 77.0 Lymphocytes % 14.0 Monocytes % 6.6 Eosinophils % 1.8 Basophils % 0.2 Neutrophils # 7.0 Lymphocytes # 1.3 Monocytes # 0.6 Eosinophils # 0.2 Basophils # 0.0 Sodium 139 Potassium 3.2 L Chloride 97 L Carbon Dioxide 31 H BUN 26 Creatinine 1.50 H Est GFR ( Amer) 58 L Est GFR (Non-Af Amer) 48 L BUN/Creatinine Ratio 17 Glucose 224 H POC Glucose 219 H Calculated Osmolality 300 Calcium 9.0 06/08/17 11:54 WBC RBC Hgb Hct MCV MCH MCHC RDW Plt Count MPV Immature Gran % Seg Neutrophils % Lymphocytes % Monocytes % Eosinophils % Basophils % Neutrophils # Lymphocytes # Monocytes # Eosinophils # Basophils # Sodium Potassium Chloride Carbon Dioxide BUN Creatinine Est GFR ( Amer) Est GFR (Non-Af Amer) BUN/Creatinine Ratio Glucose POC Glucose 268 H Calculated Osmolality Calcium Cultures: Cultures 06/02/17 12:55 Surgical Biopsy Culture - Final Left Index Finger 06/02/17 12:55 Anaerobic Culture - Preliminary Left Index Finger At this time, no anaerobic growth is present. The culture will be finalized after 5 days of incubation. Exam - Constitutional Vitals: Temp Pulse Resp BP Pulse Ox 98.1 F 91 18 139/77 100 06/08/17 10:56 06/08/17 10:56 06/08/17 10:56 06/08/17 10:56 06/08/17 10:56 General appearance: average body habitus, cooperative, no acute distress - Head Head exam: Present: atraumatic, normal inspection, normocephalic - Eye Eye exam: Present: EOMI, normal appearance, PERRL Pupils: Present: normal accommodation - ENT ENT exam: Present: mucous membranes moist - Neck Neck exam: Present: normal inspection - Respiratory Respiratory exam: Present: CTAB. Absent: rales, respiratory distress, rhonchi, wheezes - Cardiovascular Cardiovascular exam: Present: RRR, +S1, +S2 - GI/Abdominal GI/Abdominal exam: Present: normal bowel sounds, soft. Absent: distended, tenderness - Extremities Exam Extremities exam: Present: tenderness (left hand). Absent: pedal edema Additional comments: Left hand dressing C/D/I. + sensation to the distal fingers. Capillary refill brisk. - Neurological Exam Neurological exam: Present: alert, oriented X3, no focal deficits - Psychiatric Psychiatric exam: Present: normal affect, normal mood - Skin Skin exam: Present: dry, intact, normal color, warm - VTE Documentation of Mechanical Device: Intermittent pneumatic compression device Consult Discharge Plan - Plan Additional Instructions: Go to scheduled follow-up appointments. Take medications as prescribed. Do you wound care daily, instructions for foot are printed in green folder. For hand cover with kerlix. Monitor wounds for signs and symptoms of infection-fever, increased swelling, pain, redness. Referrals: Matt Cadet DO [Partnered Physician] - (OFFICE WILL CALL YOU WITH APPT TIME) Contreras Car MD [Partnered Physician] - 06/19/17 10:40 am Uvaldo Fernandez MD [Primary Care Provider] - 06/15/17 9:30 am Prescriptions: HYDROcodone/Acet 5/325 mg [[place] 5-325 mg] 1 tab PO Q6HR PRN #20 tablet PRN Reason: Pain Morphine Sulfate [Arymo ER] 15 mg PO Q12H #10 tab.po.er
== END 2017-06-08 15:05 | disposition home or self-care (01) | DRG 554 ==
LOC: 3NENU 11:55 → EMEROO 11:55 → 3NENU 18:53 → SUATTDRO 20:20
PROVIDERS: ADMIT Nurse Practitioner Acute Care; ATTEND Family Medicine